=== PATIENT | male | born 1970 | race Two or more races ===

== ENCOUNTER 2021-10-24 22:28 | Inpatient (IN) | payer OTHER ==
[~2021-10-24] VITALS: Ht 175.3 cm; Wt 86.4 kg
[~2021-10-24 22:28] MED LIST: aspirin 81mg tab.chew ONE; enoxaparin 100mg/ml syringe ONE; heparin 10,000 units/1 ML INJ ONE; heparin, porcine-25,000 units/D5-250ml premix IV ONE
[2021-10-24] MEDS ORDERED: heparin 10,000 units/1 ML INJ IV ONE ×2 (22:45→22:50)
[2021-10-24] MEDS ORDERED: aspirin 325mg tablet PO ONE (22:45)
[2021-10-24] MEDS ORDERED: heparin 10,000 units/1 ML INJ IV PRN (22:45)
[2021-10-24] MEDS ORDERED: heparin 25,000 UNIT/250ml bag 250 ML IV SCH (22:45)
[2021-10-24] MEDS ORDERED: morphine 4 MG/ML inj SYRINge IV ONE (22:55)
[2021-10-24] MEDS ORDERED: ELVI1TAB3 PO (23:00)
[2021-10-24] MEDS ORDERED: ondansetron/PF 4mg/2ml inj IV ONE (23:00)
[2021-10-24 23:02] LABS: EOSINOPHILS # (AUTO) 0.1 X10'3 (0-0.9); MEAN CORPUSCULAR HEMOGLOBIN 25.2 PG (27.0-31.0)
[2021-10-24 23:04] LABS: BASOPHILS # (AUTO) 0.1 X10'3 (0-0.2); BASOPHILS % (AUTO) 1.1 % (0-1); EOSINOPHILS % (AUTO) 1.6 % (0-6); HEMATOCRIT 44.2 % (42.0-52.0); HEMOGLOBIN 14.4 g/dl (14.0-17.9); LYMPHOCYTES # (AUTO) 0.9 X10'3 (1.1-4.8); LYMPHOCYTES % (AUTO) 13.7 % (21-51); MEAN CORPUSCULAR HGB CONC 32.6 g/dL (33.0-36.5); MEAN CORPUSCULAR VOLUME 77.2 FL (78-98); MEAN PLATELET VOLUME 7.4 FL (7.4-10.4); MONOCYTES # (AUTO) 0.8 X10'3 (0-0.9); MONOCYTES % (AUTO) 12.6 % (2-12); NEUTROPHILS # (AUTO) 4.6 X10'3 (1.8-7.7); PLATELET COUNT 312 X10'3 (140-440); RED BLOOD COUNT 5.73 X10'6 (4.70-6.10); RED CELL DISTRIBUTION WIDTH 13.9 % (11.5-14.5); WHITE BLOOD COUNT 6.5 X10'3 (4.5-11.0)
[2021-10-24] MEDS ORDERED: nitroGLYCERIN 1gm ointment UD TP ONE (23:05)
[2021-10-24 23:12] LABS: APTT 27 SECONDS (22-32)
[2021-10-24] MEDS ORDERED: LIDOcaine 1% (10mg/ml)w/preservative injection 20ml MDV ONE (23:12)
[2021-10-24] MEDS ORDERED: fentaNYL/PF 50MCG/1 ML 2ML syringe ONE (23:12)
[2021-10-24] MEDS ORDERED: midazolam 1 mg/ML 2ml injection ONE (23:12)
[2021-10-24] MEDS ORDERED: iohexol 350MG/ML 100ml bottle IV ONE ×2 (23:12→23:51)
[2021-10-24] MEDS ORDERED: iohexol 350 MG/ML 50ML vial IV ONE (23:12)
[2021-10-24 23:20] LABS: ALANINE AMINOTRANSFERASE 36 U/L (12-78); ALBUMIN 3.7 G/DL (3.4-5.0); ALBUMIN/GLOBULIN RATIO 0.9 (1.1-1.5); ALKALINE PHOSPHATASE 82 IU/L (46-116); ANION GAP 7 (8-16); ASPARTATE AMINO TRANSFERASE 26 U/L (10-37); BILIRUBIN,TOTAL 0.3 MG/DL (0.1-1.0); BLOOD UREA NITROGEN 23 MG/DL (7-18); BUN/CREATININE RATIO 18.3 (5.4-32.0); CALCIUM 8.5 MG/DL (8.5-10.1); CHLORIDE 103 MMOL/L (99-107); CREATININE 1.26 MG/DL (0.60-1.10); GLUCOSE 184 MG/DL (70-104); POTASSIUM 3.7 MMOL/L (3.5-5.1); SODIUM 140 MMOL/L (135-145); TOTAL CARBON DIOXIDE 29.7 MMOL/L (24-32); TOTAL PROTEIN 7.8 G/DL (6.4-8.2); eGFR 60 ML/MIN
[2021-10-24] MEDS ORDERED: diphenhydrAMINE 50 mg/ml inj ONE (23:34)
[2021-10-24 23:38] LABS: MAGNESIUM 2.1 MG/DL (1.5-2.4)
[2021-10-24] MEDS ORDERED: tirofiban 5mg in NS 100mL 100 ML IV ONE (23:43)
[2021-10-24] MEDS ORDERED: heparin 1,000unit/ml 10ml vial 10 ML ONE (23:52)
[2021-10-24] MEDS ORDERED: nitroGLYCERIN-Tridil 50MG/D5W 250 ML IV ONE (23:56)
[2021-10-25] VITALS (30 sets, daily range): BP systolic 92–127; BP diastolic 55–88
[2021-10-25] MEDS ORDERED: clopidogrel 300mg tablet ONE (00:14)
[2021-10-25] MEDS ORDERED: tirofiban 5mg in NS 100mL 100 ML IV ONE (00:30)
--- NOTE | 2021-10-25 01:00 | NUR ---
Patient in room ICU 2045. I have received report from Magaly MACIAS from greenhouse laborer and had the opportunity to ask questions and assume patient care.
[2021-10-25] MEDS ORDERED: magnesium hydroxide 30ml (MOM) UD suspension PO PRN (01:15)
[2021-10-25] MEDS ORDERED: nitroGLYCERIN 0.4mg SUBLingual tab SL PRN (01:15)
[2021-10-25] MEDS ORDERED: acetaminophen 325mg tablet PO PRN ×2 (01:15)
[2021-10-25] MEDS ORDERED: HYDROcodone/acetaminophen 10/325mg tab PO PRN ×2 (01:15)
[2021-10-25] MEDS ORDERED: morphine 10mg/ml inj. IV PRN (01:15)
[2021-10-25] MEDS ORDERED: OXAZEpam 15mg capsule PO PRN (01:15)
[2021-10-25] MEDS ORDERED: proCHLORperazine 10 MG/2 ml inj IV PRN (01:15)
[2021-10-25] MEDS ORDERED: morphine 4 MG/ML inj SYRINge IV PRN (01:15)
[2021-10-25] MEDS ORDERED: nitroGLYCERIN-Tridil 50MG/D5W 250 ML IV PRN (01:15)
[2021-10-25] MEDS ORDERED: cyclobenzaprine 10mg tablet PO PRN (01:15)
[2021-10-25] MEDS ORDERED: normal saline 1000ml 1,000 ML IV SCH (01:20)
[2021-10-25 03:05] LABS: BASOPHILS # (AUTO) 0.1 X10'3 (0-0.2); BASOPHILS % (AUTO) 1.1 % (0-1); EOSINOPHILS # (AUTO) 0.1 X10'3 (0-0.9); EOSINOPHILS % (AUTO) 1.6 % (0-6); HEMATOCRIT 39.9 % (42.0-52.0); HEMOGLOBIN 12.8 g/dl (14.0-17.9); LYMPHOCYTES # (AUTO) 0.9 X10'3 (1.1-4.8); LYMPHOCYTES % (AUTO) 16.5 % (21-51); MEAN CORPUSCULAR HEMOGLOBIN 24.9 PG (27.0-31.0); MEAN CORPUSCULAR HGB CONC 32.2 g/dL (33.0-36.5); MEAN CORPUSCULAR VOLUME 77.5 FL (78-98); MEAN PLATELET VOLUME 7.5 FL (7.4-10.4); MONOCYTES # (AUTO) 0.6 X10'3 (0-0.9); MONOCYTES % (AUTO) 11.8 % (2-12); NEUTROPHILS # (AUTO) 3.7 X10'3 (1.8-7.7); PLATELET COUNT 299 X10'3 (140-440); RED BLOOD COUNT 5.14 X10'6 (4.70-6.10); RED CELL DISTRIBUTION WIDTH 14.3 % (11.5-14.5); WHITE BLOOD COUNT 5.3 X10'3 (4.5-11.0)
[2021-10-25 03:20] LABS: ALANINE AMINOTRANSFERASE 31 U/L (12-78); ALBUMIN 2.9 G/DL (3.4-5.0); ALBUMIN/GLOBULIN RATIO 0.8 (1.1-1.5); ALKALINE PHOSPHATASE 66 IU/L (46-116); ANION GAP 7 (8-16); ASPARTATE AMINO TRANSFERASE 49 U/L (10-37); BILIRUBIN,TOTAL 0.2 MG/DL (0.1-1.0); BLOOD UREA NITROGEN 18 MG/DL (7-18); CALCIUM 7.5 MG/DL (8.5-10.1); CHLORIDE 107 MMOL/L (99-107); CHOLESTEROL 155 MG/DL (0-200); GLUCOSE 107 MG/DL (70-104); HDL CHOLESTEROL 31 MG/DL (35-60); LDL CHOLESTEROL 112 MG/DL (50-100); POTASSIUM 3.9 MMOL/L (3.5-5.1); SODIUM 140 MMOL/L (135-145); TOTAL CARBON DIOXIDE 26.5 MMOL/L (24-32); TOTAL PROTEIN 6.5 G/DL (6.4-8.2); TRIGLYCERIDES 29 MG/DL (20-135); eGFR 89 ML/MIN
[2021-10-25] MEDS: aspirin 81mg tab.chew PO SCH (08:00)
[2021-10-25] MEDS: clopidogrel 75mg tablet PO SCH (08:00)
[2021-10-25] MEDS: docusate sod 100mg capsule PO SCH ×2 (08:00→19:49)
[2021-10-25] MEDS: atorvastatin 20mg tablet PO SCH (08:00)
[2021-10-25] MEDS ORDERED: LIDOcaine 1% (10mg/ml)w/preservative injection 20ml MDV ONE (08:50)
--- NOTE | 2021-10-25 21:30 | NUR ---
Patient in room MED 307. I have received report from Jeana MACIAS and had the opportunity to ask questions and assume patient care.
--- NOTE | 2021-10-25 21:40 | NUR ---
Mr. Daily has been transferred to room 307-B. He has been assessed as indicated. He has been noted to be both pleasant and cooperative. He denies pain and has been assited to bed without complications. He is NSR on the heart monitor and is resting quietly. He will continue to be monitored
--- NOTE | 2021-10-25 21:48 | NUR ---
Patient transferred to room 207 via wheelchair. Alert and oriented X4. No complaints of pain or discomfort noted. Portable tele on for transfer/ Belongings given. Addendum: 10/26/21 at 0551 by Michelle Mcintyre RN Patient transferred to room 307 via wheelchair. Alert and oriented X4. No complaints of pain or discomfort noted. Portable tele on for transfer/ Belongings given.
[2021-10-26 02:00] VITALS: BP 105/65
[2021-10-26 06:00] VITALS: BP 109/76
--- NOTE | 2021-10-26 06:22 | NUR ---
Problems reprioritized. Patient report given, questions answered & plan of care reviewed with Diana Morales
[2021-10-26 06:27] LABS: BASOPHILS # (AUTO) 0.1 X10'3 (0-0.2); BASOPHILS % (AUTO) 1.1 % (0-1); EOSINOPHILS # (AUTO) 0.1 X10'3 (0-0.9); EOSINOPHILS % (AUTO) 1.3 % (0-6); HEMATOCRIT 37.8 % (42.0-52.0); LYMPHOCYTES # (AUTO) 1.1 X10'3 (1.1-4.8); MEAN CORPUSCULAR HEMOGLOBIN 24.9 PG (27.0-31.0); MEAN CORPUSCULAR HGB CONC 31.7 g/dL (33.0-36.5); MEAN CORPUSCULAR VOLUME 78.6 FL (78-98); MEAN PLATELET VOLUME 7.6 FL (7.4-10.4); MONOCYTES # (AUTO) 1.1 X10'3 (0-0.9); MONOCYTES % (AUTO) 18.4 % (2-12); NEUTROPHILS # (AUTO) 3.8 X10'3 (1.8-7.7); NEUTROPHILS % (AUTO) 62.2 % (42-75); PLATELET COUNT 265 X10'3 (140-440); RED BLOOD COUNT 4.81 X10'6 (4.70-6.10); RED CELL DISTRIBUTION WIDTH 14.1 % (11.5-14.5); WHITE BLOOD COUNT 6.2 X10'3 (4.5-11.0)
--- NOTE | 2021-10-26 06:40 | NUR ---
Patient in room MED 307. I have received report from COLLEEN FITZPATRICK, and had the opportunity to ask questions and assume patient care.
[2021-10-26] MEDS: atorvastatin 20mg tablet PO SCH (08:08)
[2021-10-26] MEDS: clopidogrel 75mg tablet PO SCH (08:08)
[2021-10-26] MEDS: aspirin 81mg tab.chew PO SCH (08:08)
[2021-10-26] MEDS: docusate sod 100mg capsule PO SCH (08:08)
[2021-10-26 11:00] VITALS: BP 104/68
--- NOTE | 2021-10-26 13:35 | NUR ---
Patient in room PCU 3012. I have received report from ALEXANDER MACIAS and had the opportunity to ask questions and assume patient care.
--- NOTE | 2021-10-26 14:09 | NUR ---
Problems reprioritized. Patient report given, questions answered & plan of care reviewed with COLLEEN VÁZQUEZ.
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
== END 2021-10-26 14:00 | disposition left against medical advice (07) | DRG 247 ==
LOC: ER 22:28 → ICU 2S 10-25 00:25 → MED 3N 10-25 23:21 → PCU 3S 10-26 10:12
PROVIDERS: ADMIT Internal Medicine; ATTEND Internal Medicine
PROC: 4A023N7 Measurement of Cardiac Sampling and Pressure, Left Heart, Percutaneous Approach (ICD-10-PCS; principal; 2021-10-24)
PROC: 027034Z Dilation of Coronary Artery, One Artery with Drug-eluting Intraluminal Device, Percutaneous Approach (ICD-10-PCS; 2021-10-24)
PROC: B2111ZZ Fluoroscopy of Multiple Coronary Arteries using Low Osmolar Contrast (ICD-10-PCS; 2021-10-24)
PROC: B2151ZZ Fluoroscopy of Left Heart using Low Osmolar Contrast (ICD-10-PCS; 2021-10-24)
DX: I21.19 ST elevation (STEMI) myocardial infarction involving other coronary artery of inferior wall (principal); F17.210 Nicotine dependence, cigarettes, uncomplicated; Z20.822 Contact with and (suspected) exposure to COVID-19; Z53.29 Procedure and treatment not carried out because of patient's decision for other reasons; I45.10 Unspecified right bundle-branch block; Z21 Asymptomatic human immunodeficiency virus [HIV] infection status; I45.9 Conduction disorder, unspecified; R00.1 Bradycardia, unspecified; Z88.1 Allergy status to other antibiotic agents; Z79.899 Other long term (current) drug therapy
CPT/HCPCS: 36415; 71045; 80053; 80061; 83735; 83880; 84484; 85025; 85610; 85730; 87081; 87635; 93005; 99285; A5120; A6258; A6449; C1760; C9803; G0378; J1200; J1644; J1650; J2250; J2270; J2405; J3010; J3246; J3490; J7030; Q9967

== ENCOUNTER 2021-10-27 04:37 | Observation (INO) | payer OTHER ==
[~2021-10-27] VITALS: Ht 175.3 cm; Wt 90.9 kg
[~2021-10-27 04:37] MED LIST changes: +ELVI1TAB3 PO; -aspirin 81mg tab.chew ONE; -enoxaparin 100mg/ml syringe ONE; -heparin 10,000 units/1 ML INJ ONE; -heparin, porcine-25,000 units/D5-250ml premix IV ONE
[2021-10-27 05:48] LABS: BASOPHILS # (AUTO) 0.1 X10'3 (0-0.2); EOSINOPHILS # (AUTO) 0.1 X10'3 (0-0.9); EOSINOPHILS % (AUTO) 1.1 % (0-6); HEMATOCRIT 34.2 % (42.0-52.0); LYMPHOCYTES # (AUTO) 0.8 X10'3 (1.1-4.8); MEAN CORPUSCULAR HGB CONC 32.3 g/dL (33.0-36.5); MEAN CORPUSCULAR VOLUME 77.4 FL (78-98); MEAN PLATELET VOLUME 7.6 FL (7.4-10.4); MONOCYTES % (AUTO) 17.7 % (2-12); NEUTROPHILS # (AUTO) 3.8 X10'3 (1.8-7.7); NEUTROPHILS % (AUTO) 66.2 % (42-75); PLATELET COUNT 269 X10'3 (140-440); RED BLOOD COUNT 4.42 X10'6 (4.70-6.10); RED CELL DISTRIBUTION WIDTH 13.7 % (11.5-14.5); WHITE BLOOD COUNT 5.7 X10'3 (4.5-11.0)
[2021-10-27 05:57] LABS: ALANINE AMINOTRANSFERASE 36 U/L (12-78); ALBUMIN 3.2 G/DL (3.4-5.0); ALBUMIN/GLOBULIN RATIO 0.8 (1.1-1.5); ALKALINE PHOSPHATASE 72 IU/L (46-116); ANION GAP 7 (8-16); ASPARTATE AMINO TRANSFERASE 45 U/L (10-37); BILIRUBIN,TOTAL 0.3 MG/DL (0.1-1.0); BLOOD UREA NITROGEN 22 MG/DL (7-18); BUN/CREATININE RATIO 18.5 (5.4-32.0); CALCIUM 8.4 MG/DL (8.5-10.1); CHLORIDE 103 MMOL/L (99-107); CREATININE 1.19 MG/DL (0.60-1.10); GLUCOSE 119 MG/DL (70-104); POTASSIUM 3.5 MMOL/L (3.5-5.1); SODIUM 138 MMOL/L (135-145); TOTAL CARBON DIOXIDE 28.2 MMOL/L (24-32); eGFR 64 ML/MIN
[2021-10-27] MEDS ORDERED: aspirin 325mg tablet PO ONE (06:05)
[2021-10-27] MEDS ORDERED: atorvastatin 20mg tablet PO STA (06:08)
[2021-10-27] MEDS ORDERED: heparin 10,000 units/1 ML INJ IV ONE ×2 (06:20→06:30)
--- NOTE | 2021-10-27 07:29 | NUR ---
drawn ptt at this time and start heparin drip bafter the result as per dr reaves orders.
[2021-10-27 07:53] LABS: APTT 24 SECONDS (22-32)
[2021-10-27] MEDS: heparin 25,000 UNIT/250ml bag 250 ML IV SCH (08:41)
--- NOTE | 2021-10-27 12:30 | NUR ---
asked natividad birch what is the plan for this pt as there is no admin orders ,pt is on heparin infusion for positive 0 hr trop ,as per he will page hospitalist .
[2021-10-27] MEDS ORDERED: magnesium 4gm in 100ml NS 100 ML IV PRN (14:05)
[2021-10-27] MEDS ORDERED: potassium CL 10mEq/100ml bag 100 ML IV PRN (14:05)
[2021-10-27] MEDS ORDERED: morphine 2 MG/ML inj. syringe IV PRN (14:05)
[2021-10-27] MEDS ORDERED: magnesium 2GM in 50ml NS 50 ML IV PRN (14:05)
[2021-10-27] MEDS ORDERED: ondansetron 4mg rapidly disintigrating tab PO PRN (14:05)
[2021-10-27] MEDS ORDERED: acetaminophen 325mg tablet PO PRN (14:05)
[2021-10-27] MEDS ORDERED: magnesium Cl slow-release 64mg tablet PO PRN (14:05)
[2021-10-27] MEDS ORDERED: ondansetron/PF 4mg/2ml inj IV PRN (14:05)
[2021-10-27] MEDS ORDERED: potassium Cl 20 mEq SR tablet PO PRN ×2 (14:05)
[2021-10-27] MEDS ORDERED: clopidogrel 300mg tablet PO ONE (16:30)
[2021-10-27] MEDS: heparin 10,000 units/1 ML INJ IV PRN (19:20)
[2021-10-27] MEDS: K and/or MAG REPLACEMENT MC SCH (20:00)
[2021-10-27 22:00] VITALS: BP 145/84
[2021-10-28 00:01] VITALS: BP 137/84
[2021-10-28 02:00] VITALS: BP 114/76
[2021-10-28] MEDS: heparin 10,000 units/1 ML INJ IV PRN (03:05)
[2021-10-28] MEDS: heparin 25,000 UNIT/250ml bag 250 ML IV SCH (03:11)
[2021-10-28 06:00] VITALS: BP 97/55
[2021-10-28 07:55] LABS: BASOPHILS # (AUTO) 0.1 X10'3 (0-0.2); BASOPHILS % (AUTO) 1.3 % (0-1); EOSINOPHILS # (AUTO) 0.2 X10'3 (0-0.9); HEMATOCRIT 35.1 % (42.0-52.0); HEMOGLOBIN 11.3 g/dl (14.0-17.9); LYMPHOCYTES # (AUTO) 0.9 X10'3 (1.1-4.8); LYMPHOCYTES % (AUTO) 18.3 % (21-51); MEAN CORPUSCULAR HGB CONC 32.2 g/dL (33.0-36.5); MEAN CORPUSCULAR VOLUME 77.4 FL (78-98); MEAN PLATELET VOLUME 7.5 FL (7.4-10.4); NEUTROPHILS # (AUTO) 2.7 X10'3 (1.8-7.7); NEUTROPHILS % (AUTO) 55.4 % (42-75); PLATELET COUNT 285 X10'3 (140-440); RED BLOOD COUNT 4.53 X10'6 (4.70-6.10); RED CELL DISTRIBUTION WIDTH 13.8 % (11.5-14.5); WHITE BLOOD COUNT 4.8 X10'3 (4.5-11.0)
[2021-10-28] MEDS: K and/or MAG REPLACEMENT MC SCH (08:00)
[2021-10-28] MEDS ORDERED: [UNRECOGNIZED DRUG - OTHER] PO SCH (08:00)
[2021-10-28 08:16] LABS: ALBUMIN 2.9 G/DL (3.4-5.0); ANION GAP 7 (8-16); BLOOD UREA NITROGEN 17 MG/DL (7-18); BUN/CREATININE RATIO 17.9 (5.4-32.0); CALCIUM 8.1 MG/DL (8.5-10.1); CHLORIDE 106 MMOL/L (99-107); CREATININE 0.95 MG/DL (0.60-1.10); GLUCOSE 89 MG/DL (70-104); MAGNESIUM 1.9 MG/DL (1.5-2.4); POTASSIUM 4.2 MMOL/L (3.5-5.1); SODIUM 139 MMOL/L (135-145); TOTAL CARBON DIOXIDE 26.4 MMOL/L (24-32); eGFR 83 ML/MIN
[2021-10-28 09:09] LABS: EOSINOPHILS % (MANUAL) 1.5 % (0-6); LARGE PLATELETS FEW; LYMPHOCYTES % (MANUAL) 13.5 % (21-51); PLATELET ESTIMATE NORMAL; TOTAL CELLS COUNTED 200
[2021-10-28] MEDS ORDERED: CLOP75TA15 PO (09:57)
--- NOTE | 2021-10-28 10:30 | NUR ---
PAGER ID: [phone] MESSAGE: [email or web address], CAN WE DISCHARGE [id number], MR. STOCKTON?
--- NOTE | 2021-10-28 11:02 | NUR ---
PAGER ID: [phone] MESSAGE: TOBIAS ON [email or web address], CAN YOU CALL ME REGARDING Leilani AND HIS PLAVIX. THX Addendum: 10/28/21 at 1158 by Le Mcintyre RN Awaiting for lab results pending discharge, Tobias MACIAS assumed care
[2021-10-28] MEDS ORDERED: clopidogrel 300mg tablet PO ONE (11:45)
--- NOTE | 2021-10-28 11:57 | NUR ---
Patient in room PCU 3013. I have received report from ANNETTA MACIAS and had the opportunity to ask questions and assume patient care.
== END 2021-10-28 14:57 | disposition home or self-care (01) ==
LOC: ER 04:38 → ED HOLD 14:06 → EDBEDREQ 18:18 → PCU 3S 19:37
PROVIDERS: ADMIT Internal Medicine; ATTEND Internal Medicine
DX: R79.89 Other specified abnormal findings of blood chemistry (principal); R06.02 Shortness of breath; Z21 Asymptomatic human immunodeficiency virus [HIV] infection status; R07.89 Other chest pain; I25.10 Atherosclerotic heart disease of native coronary artery without angina pectoris; F17.210 Nicotine dependence, cigarettes, uncomplicated; Z88.1 Allergy status to other antibiotic agents; Z79.899 Other long term (current) drug therapy; Z79.02 Long term (current) use of antithrombotics/antiplatelets
CPT/HCPCS: 36415; 71045; 80048; 80053; 83735; 83880; 84132; 84484; 85007; 85025; 85610; 85730; 87081; 93005; 96365; 96366; 96376; 99285; G0378; J1644

== ENCOUNTER 2025-09-10 12:16 | Emergency (ER) | payer MEDICAID ==
[~2025-09-10] VITALS: Ht 175.3 cm; Wt 80.2 kg
[~2025-09-10 12:16] MED LIST changes: +CLOP75TA15 PO
[2025-09-10 12:46] LABS: LEUKOCYTE ESTERASE ,URINE NEGATIVE (Neg); NITRITES, URINE NEGATIVE (Neg); OCCULT BLOOD,URINE NEGATIVE (Neg); UA COLLECTION TYPE CLN CATCH MIDSTREAM
[2025-09-10 12:49] LABS: MEAN PLATELET VOLUME 6.9 FL (7.4-10.4); RED CELL DISTRIBUTION WIDTH 15.2 % (11.5-14.5)
[2025-09-10 12:59] LABS: CREATININE 1.01 MG/DL (0.60-1.10); TOTAL CARBON DIOXIDE 32.4 MMOL/L (24-32); eCRCL 82 ML/MIN; eGFR 76 ML/MIN
--- NOTE | 2025-09-10 13:44 | Physician Documentation ---
History of Present Illness Chief Complaint: Abdominal Pain Stated Complaint: ABD PAIN Time Seen by MD: 12:31 Source: patient Mode of Arrival: POV Exam Limitations: no limitations HPI 55 y/o male with c/o abdominal pain gradual onset over past several days. Patient states he was told if he experiences abdominal pain to come to the emergency room because he has a known right-sided inguinal hernia which is pending repair from Dr. Ferrer. He denies any pain in his groin area where his hernias at but he was not sure if the pain in his abdomen could be related to the hernia. Last bowel movement 7days ago. He has not taken for constipation. Nausea, vomiting. He is not on opioids. Medication Reconciliation Allergies: Coded Allergies: amoxicillin (Verified Allergy, Unknown, 09/10/25) Scheduled Clopidogrel Bisulfate (Plavix), 1 TAB PO DAILY Elviteg/Cady/Emtric/Tenofo Ala (Genvoya Tablet), 1 TAB PO DAILY, (Reported) Past Medical History Past Medical History: No Pertinent History, Coronary Artery Disease, HIV Lives In: Home Review of Systems All Other Systems at this time: Reviewed and Negative Physical Exam Vital Signs: Temperature: 98.1, Source: Temporal, Heart Rate: 82, Respiratory Rate: 16, BP: 175/104, Pulse Oximetry: 100, Weight: 80.200 Oxygen Flow Rate: 0 Physical Exam GENERAL: Alert, no acute distress. HEENT: NCAT, EOMI, PERRL, normal oropharynx, moist oral mucosa. NECK: Supple, trachea midline. CARDIAC: Regular rate and rhythm, no murmurs, rubs, or gallops. Equal distal pulses. No lower extremity edema, cap refill less than 2 seconds. RESPIRATORY: Equal breath sounds, clear to auscultation bilaterally, no respiratory distress. ABD: SOFT, ND, VERY MILD TTP, NO MASSES, IN AREA WHERE KNOWN R. INGUINAL HERNIA IS THERE IS NO TTP WITH PALPATION. MUSCULOSKELETAL: Normal gait. NEUROLOGICAL: Awake, alert, and oriented x 3. SKIN: Warm/dry, no pallor, no rash. PSYCH: Alert and appropriate. Affect congruent with mood. Speech is clear. Good eye contact. Progress Results/Orders Results/Orders Vital Signs 09/10/25 09/10/25 12:20 12:58 Temp 98.1 Pulse 82 Resp 18 16 B/P (MAP) 175/104 Pulse Ox 100 O2 Flow Rate 0 Laboratory Tests Test 09/10/25 12:31 White Blood Count 5.3 Red Blood Count 6.01 Hemoglobin 15.1 Hematocrit 45.9 Mean Corpuscular Volume 76.3 L Mean Corpuscular Hemoglobin 25.1 L Mean Corpuscular Hemoglobin Concent 32.9 L Red Cell Distribution Width 15.2 H Platelet Count 315 Mean Platelet Volume 6.9 L Neutrophils (%) (Auto) 58.6 Lymphocytes (%) (Auto) 20.8 L Monocytes (%) (Auto) 14.3 H Eosinophils (%) (Auto) 4.4 Basophils (%) (Auto) 1.9 H Neutrophils # (Auto) 3.1 Lymphocytes # (Auto) 1.1 Monocytes # (Auto) 0.8 Eosinophils # (Auto) 0.2 Basophils # (Auto) 0.1 CBC Comment Urine Specimen Description Cln catch midstream Urine Color Yellow Urine Clarity Clear Urine pH 6.5 Urine Specific Beebe 1.015 Urine Protein Negative Urine Glucose (UA) Negative Urine Ketones Negative Urine Occult Blood Negative Urine Nitrite Negative Urine Bilirubin Negative Urine Urobilinogen 0.2 Urine Leukocyte Esterase Negative Urine Culture Indicated Not ind Volume Urine Centrifuged 10 ml Urine Comment Sodium Level 135 Potassium Level 4.6 Chloride Level 98 L Carbon Dioxide Level 32.4 H Anion Gap 5 L Blood Urea Nitrogen 21 H Creatinine 1.01 Estimated GFR/1.73 m2 76 BUN/Creatinine Ratio 20.8 H Glucose Level 105 H Calcium Level 8.8 Total Bilirubin 0.4 Aspartate Amino Transf (AST/SGOT) 15 Alanine Aminotransferase (ALT/SGPT) 19 Alkaline Phosphatase 87 Total Protein 8.6 H Albumin 4.0 Globulin 4.6 H Albumin/Globulin Ratio 0.9 L Lipase 34 Chemistry Comments Medical Decision Making Additional information obtaine: N/A Findings n/a Differential Dx:Considerations: AAA, Angina/VA, Aortic dissection, Appendicitis, Bowel obstruction, Cholangitis, Cholelithasis, Constipation, Diverticular disease, Esophageal rupture, Esophagitis, Gastritis/PUD, Gastroenteritis, GI hemorrhage, Hernia, Hepatitis, Inflammatory BD, Ischemic bowel, Pancreatitis, Porphyria, Testicular torsion, Trauma, intraabdominal, Urinary obstruction, Urinary tract infection, Urolithiasis, Other Departure Time of Disposition: 18:43 Disposition: 01 HOME / SELF CARE / HOMELESS Impression: Primary Impression: Abdominal pain Qualified Codes: R10.84 - Generalized abdominal pain Condition: Stable Discharge Instructions: Abdominal Pain (Nonspecific) Additional Instructions: labs normal pain is not in area where hernia is I suspect pain is related to constipation, recommend taking mag citrate or milk of mag If vomiting or worsening of pain return to ER Referrals: NO PRIMARY CARE PROVIDER (PCP) Education Educated: Patient Educated regarding: diagnosis, treatment, need for follow up Signature Scribe Signature: x Attestation: ZUNILDA Jones Sep 10, 2025 13:44
[2025-09-10 13:49] VITALS: BP 148/95; PULSE 88; RESP 16; TEMP 98.1; O2SAT 96
== END 2025-09-10 13:51 | disposition home or self-care (01) ==
LOC: ER 12:17
DX: K40.90 Unilateral inguinal hernia, without obstruction or gangrene, not specified as recurrent (principal); Z88.1 Allergy status to other antibiotic agents; Z79.899 Other long term (current) drug therapy
CPT/HCPCS: 36415; 80053; 81003; 83690; 85025; 99283

== ENCOUNTER 2025-09-13 21:27 | Emergency (ER) | payer MEDICAID ==
[2025-09-13 21:53] VITALS: BP 170/100; PULSE 84; RESP 15; TEMP 96.3; O2SAT 98
[2025-09-14] MEDS ORDERED: PROM12.512 PO (14:34)
== END 2025-09-13 23:05 | disposition left against medical advice (07) ==
LOC: ER 21:27
DX: R10.32 Left lower quadrant pain (principal); Z88.1 Allergy status to other antibiotic agents; Z53.21 Procedure and treatment not carried out due to patient leaving prior to being seen by health care provider
CPT/HCPCS: 99281

== ENCOUNTER 2025-09-14 14:17 | Emergency (ER) | payer MEDICAID ==
--- NOTE | 2025-09-14 14:26 | Physician Documentation ---
History of Present Illness Stated Complaint: L LEG NUMBNESS HPI This 55-year-old male who presents ambulatory due to concerns for left leg numbness. No neurologic deficits. Stroke scale negative parents notes that he is waiting for a left inguinal hernia repair under the care of Dr. Ferrer. This is not yet been scheduled. He was seen within the last two week for constipation and nausea. He reports the constipation has been alleviated, but the nausea persists. Medication Reconciliation Allergies: Coded Allergies: amoxicillin (Verified Allergy, Unknown, 09/13/25) Scheduled Clopidogrel Bisulfate (Plavix), 1 TAB PO DAILY Elviteg/Cady/Emtric/Tenofo Ala (Genvoya Tablet), 1 TAB PO DAILY, (Reported) Past Medical History Past Medical History: No Pertinent History, Coronary Artery Disease, HIV Lives In: Home Review of Systems ROS As stated above in the HPI, otherwise all systems are reviewed and negative. Physical Exam Physical Exam General: Alert, no apparent distress. HEENT: PERRL, EOMI, no injection, moist mucous membranes. Neck: Full range of motion. Respiratory: Lungs clear, no respiratory distress. Chest: No accessory muscle use. Cardiovascular: Regular rate and rhythm, no murmurs. Gastrointestinal: Soft, nontender, nondistended. Bowels sounds present. Extremities: Normal range of motion, no deformity. Neurologic: Oriented x4. Psychiatric: Normal mood and affect. Skin: Normal color, warm and dry. No edema, no ecchymosis. Medical Decision Making Additional information obtaine: old records Findings Was in this ER requesting to be seen within last 24 hours but LWOBS. Differential Dx:Considerations: AAA, Angina/[place], Aortic dissection, Appendicitis, Bowel obstruction, Cholangitis, Cholelithasis, Constipation, Diverticular disease, Esophageal rupture, Esophagitis, Gastritis/PUD, Gastroenteritis, GI hemorrhage, Hernia, Hepatitis, Inflammatory BD, Ischemic bow el, Pancreatitis, Porphyria, Testicular torsion, Trauma, intraabdominal, Urinary obstruction, Urinary tract infection, Urolithiasis, Other Additional Comments Normal neuro exam with no focal deficits. No hard discolored lump at site of hernia. No danger signs on exam. Appropriate to keep general surgeon f/u appt and return if worse. Departure Time of Disposition: 14:32 Disposition: 01 HOME / SELF CARE / HOMELESS Impression: Primary Impression: Nausea Additional Impression: Inguinal hernia of left side without obstruction or gangrene Condition: Stable Discharge Instructions: Inguinal Hernia, Adult, Nausea, Adult Additional Instructions: Follow up with your surgeon, Dr. Coleman. Please return if worse, such as with numbness of one side versus the other, facial droop, severe pain, hard discolored lump at site of hernia, fever, or any other concerns that you are markedly worse. Referrals: NO PRIMARY CARE PROVIDER (PCP) Prescriptions Promethazine Hcl (Phenergan) 12.5 Mg Tablet 1 TAB PO Q6H for nausea for 7 Days, #28 TAB 0 Refills Prov: SHAZIA CHRISTIAN NP 09/14/25 Education Educated: Patient Educated regarding: diagnosis, treatment, prognosis, need for follow up Signature Scribe Signature: x Attestation: The note accurately reflects work and decisions made by me.Shazia Bernard NP 09/14/25 14:31 SHAZIA CHRISTIAN NP Sep 14, 2025 14:26
[2025-09-14 14:27] VITALS: BP 155/104; PULSE 93; RESP 15; TEMP 96.3; O2SAT 96
[2025-09-14] MEDS ORDERED: PROM12.512 PO (14:34)
== END 2025-09-14 14:42 | disposition home or self-care (01) ==
LOC: ER 14:17
DX: K40.90 Unilateral inguinal hernia, without obstruction or gangrene, not specified as recurrent (principal); R11.0 Nausea; Z88.0 Allergy status to penicillin
CPT/HCPCS: 99283

== ENCOUNTER 2025-09-15 22:00 | Inpatient (IN) | payer MEDICAID ==
[~2025-09-15] VITALS: Ht 175.3 cm; Wt 77.3 kg
[~2025-09-15 22:00] MED LIST changes: +PROM12.512 PO
--- NOTE | 2025-09-16 00:55 | ELECTROCARDIOGRAPH REPORT ---
[facility] Test Date: 2025-09-16 Test Time: 00:53:40 Pat Name: MARY STOCKTON Department: [facility] Patient ID: [id number] Room: [place] [address] Gender: M Rivet Spinner: : 1970 Requested By: DUARTE REYES Order Number: [id number] Reading MD: Dr. CAROLINA Sood Measurements Intervals [place] Rate: 90 P: 60 VT: 127 QRS: 87 QRSD: 103 T: 34 QT: 370 QTc: 453 Interpretive Statements Sinus rhythm RSR' in V1 or V2, right VCD or RVH Electronically Signed On 09-17-2025 13:08:[address] CAROLINA Sood Please click the below link to view image of tracing.
[2025-09-16 01:21] LABS: MEAN PLATELET VOLUME 6.8 FL (7.4-10.4); RED CELL DISTRIBUTION WIDTH 14.4 % (11.5-14.5)
[2025-09-16 01:37] LABS: APTT 25 SECONDS (22-32); INR 1.0 INR
[2025-09-16 01:42] LABS: CREATININE 1.03 MG/DL (0.60-1.10); TOTAL CARBON DIOXIDE 29.9 MMOL/L (24-32); eCRCL 80 ML/MIN; eGFR 75 ML/MIN
[2025-09-16] MEDS ORDERED: iohexol 300mg/ml 100ml inj. ONE (02:15)
--- NOTE | 2025-09-16 03:13 | RADIOLOGY REPORT ---
EXAM: CT CT HEAD INDICATION: progressive LE weakness x2 weeks, mass TECHNIQUE: CT of the head without intravenous contrast. Radiation Dose : 1. Head: CT Dose: CTDI volume is 51.4 mGy. Dose-length product is 995.89 mGy*cm The dose indicators for CT are the volume Computed Tomography (CT) Dose Index (CTDIvol) and the Dose Length Product (DLP), and are measured in units of mGy and mGy-cm, respectively. These indicators are not patient dose, but values generated from the CT scanner acquisition factors. The report includes radiation exposure data for exposures received during this examination. COMPARISON: None FINDINGS: There is no evidence of acute intracranial hemorrhage, extra-axial collection, mass effect, midline shift, herniation or hydrocephalus. The ventricles, sulci and cisterns are age appropriate. The iraheta-white differentiation is intact. The visualized paranasal sinuses and mastoid air cells are clear. The surrounding soft tissues and osseous structures are unremarkable. IMPRESSION: 1. No evidence of acute intracranial abnormality. Radiation optimization: All CT scans at this facility use at least one of these dose optimization techniques: automated exposure control mA and/or kV adjustment per patient size (includes targeted exams where dose is matched to clinical indication) or iterative reconstruction.
--- NOTE | 2025-09-16 03:17 | RADIOLOGY REPORT ---
EXAM: CT CT CERVICAL SPINE HISTORY: progressive LE weakness x2 weeks, mass COMPARISON: None CTDIvol 19.6 mGy, DLP 522.52 mGy*cm. TECHNIQUE: Multiple axial CT images of the spine were obtained using bone algorithm. Axial and coronal reformatting was done. Bone and soft tissue windows were reviewed. FINDINGS: Loss of normal cervical lordosis. No CT evidence of definite acute fracture, spinal dislocation, or significant appearing acute subluxation is seen. The visualized paraspinal soft tissues are grossly unremarkable. Degenerative changes include moderate disc height loss at the C5-C6 and C6-C7 levels with corresponding adjacent endplate sclerosis and anterior osteophytosis. Moderate multilevel bilateral facet hypertrophy. IMPRESSION: 1. No definite CT evidence of acute fracture or dislocation of the bony cervical spine. 2. Degenerative change of the cervical spine.
--- NOTE | 2025-09-16 03:36 | RADIOLOGY REPORT ---
EXAM: CT CT THORACIC SPINE HISTORY: progressive LE weakness x2 weeks, mass COMPARISON: None CTDIvol 25.94 mGy, DLP 1000.05 mGy*cm. TECHNIQUE: Multiple axial CT images of the spine were obtained using bone algorithm. Axial and coronal reformatting was done. Bone and soft tissue windows were reviewed. FINDINGS: No CT evidence of definite acute fracture, spinal dislocation, or significant appearing acute subluxation is seen. The visualized paraspinal soft tissues are grossly unremarkable. Degenerative change at multiple consecutive levels of the thoracic spine includes disc height loss, adjacent endplate sclerosis and anterior osteophytosis. IMPRESSION: 1. No definite CT evidence of acute fracture or dislocation of the bony thoracic spine. 2. Degenerative change of the thoracic spine.
--- NOTE | 2025-09-16 03:47 | RADIOLOGY REPORT ---
Exam: CT CT ABDOMEN PELVIS W/ IV CONTRAST History: R groin pain, /n/v, known hernia, bowel obstruction COMPARISON: None Technique: Multidetector spiral CT of the abdomen and pelvis was performed from lung bases to pubic symphysis. Intravenous contrast was administered during this examination. Portal venous imaging was obtained. Axial, coronal and sagittal multiplanar reformats were performed by the technologist on a separate workstation. Radiation Dose : 1. Abdomen/Pelvis: CTDIvol 26.91 mGy, DLP 1466.11 mGy*cm. CONTRAST: Type of contrast: Contrast injected: ml Contrast ingested: ml Findings: Lung Bases: No acute or significant lung base finding. Normal heart size. No pleural or pericardial effusion. Liver: The liver is normal in size. No focal lesions. Normal hepatic vascular enhancement. Gallbladder and Biliary Tree: Hyperdense material within the gallbladder may represent sludge versus vicarious contrast excretion. Spleen: Unremarkable Pancreas: The pancreas is normal in appearance without focal lesions or abnormal enhancement. Adrenal Glands: Unremarkable Kidneys: No nephrolithiasis or hydronephrosis. Bilateral renal cortical cysts measure 1.2 cm on the left and 1.0 cm on the right. Bladder: Marked urinary bladder distention. Bowel: The stomach is grossly normal in appearance. Small bowel and colon are normal in caliber and distribution. The appendix is not visualized; however, no secondary findings of acute appendicitis identified. Ascites: Absent Lymphadenopathy: No mesenteric, retroperitoneal or periportal lymphadenopathy. Abdominal Wall and Mesentery: Unremarkable. Vasculature: The visualized abdominal aorta is normal in size and caliber. Atherosclerotic vascular calcifications. Abdominal and pelvic vessels demonstrate normal enhancement. Pelvic Organs: Unremarkable. Bilateral fat containing inguinal hernias. Musculoskeletal: No aggressive focal bony lesions, acute fractures or dislocation. IMPRESSION: 1. No acute abdominal or pelvic finding. 2. Hyperdense material within the gallbladder may represent gallbladder sludge versus vicarious contrast excretion. 3. Marked urinary bladder distention. Radiation optimization: All CT scans at this facility use at least one of these dose optimization techniques: automated exposure control mA and/or kV adjustment per patient size (includes targeted exams where dose is matched to clinical indication) or iterative reconstruction.
--- NOTE | 2025-09-16 05:14 | Physician Documentation ---
History of Present Illness General Chief Complaint: Leg Pain Stated Complaint: ABD PAIN Time Seen by MD: 23:03 History of Present Illness Initial Comments This is a 55-year-old male who presented for evaluation of right groin pain similar to pain he associates with the hernia. Has been present for over a year, intermittent, got worse for the last couple of days because it is accompanied by nausea or vomiting. He has been evaluated multiple times for this pain both at [facility] and here. He had several visits on three, twelve for to both facilities, [address] that was done at [facility] showed partially visualized hernia containing bowel without evidence of small bowel obstruction. He is supposed to follow-up with Dr. Kalyan taylor. Incidentally the patient also reports that for the last two weeks he has a developed numbness on his abdomen, a proximally 2 in above his belly button wrapping around both left and right front. Than numbness progressively descended to envelope his belly button. Subsequent to that he had developed numbness on medial anterior thigh, 1st on the left, then on the right. Then the numbness had progressed down the left leg, then down the right leg. He has been developing weakness in bilateral lower extremities for the last week or so. He states that for the last two days he has not been able to ambulate and is not able to move his leg on the left side against gravity. He states that he has a very remote history of IV drug use, none recently. He does not not have any ev aluation for this numbness. At the time of my examination he denies any urinary incontinence, fecal incontinence, denies blood dyscrasias, denies use of blood thinners, denies history of diabetes, denies urinary retention. He denies saddle paresthesias when inquired in plain [place]. Denies penile numbness. Denies any other symptoms. Medication Reconciliation Allergies: Coded Allergies: amoxicillin (Verified Allergy, Unknown, 09/14/25) Scheduled Clopidogrel Bisulfate (Plavix), 1 TAB PO DAILY Elviteg/Cady/Emtric/Tenofo Ala (Genvoya Tablet), 1 TAB PO DAILY, (Reported) Promethazine Hcl (Phenergan), 1 TAB PO Q6H Past Medical History Past Medical History: No Pertinent History, Coronary Artery Disease, HIV Lives In: Home Review of Systems ROS 10 point review of systems was performed and unless noted above in HPI is negative for acute process/complaint. Physical Exam Physical Exam Vital Signs: Heart Rate: 92, Respiratory Rate: 16, BP: 161/98, Pulse Oximetry: 97, Weight: 77.270 Physical Exam GENERAL: Awake, alert, oriented, GCS 15, no apparent distress, non-toxic appearing, answers questions, follows commands appropriately. HEENT: Atraumatic, normocephalic, pupils equal, extraocular muscles intact, sclerae anicteric, mucus membranes moist, oropharynx is clear, no stridor. NECK: supple, full active range of motion, trachea midline, no thyromegaly, no lymphadenopathy, no JVD. CARDIOVASCULAR: regular rate/rhythm, no murmurs/gallops/rubs, Pulses are 2+ in all extremities and symmetric. Capillary refill less than 2 seconds. PULMONARY: Nonlabored, good air movement ,no respiratory distress, speaking in full sentences, clear to auscultation bilaterally, no wheezing, no ronchi, no rales, no accessory muscle use. GASTROINTESTINAL: Soft, non-tender, non-distended, normal active bowel sounds, no organomegaly, no pulsatile masses, no CVA tenderness. NEUROLOGIC: Lucid with normal mental status. Normal facial symmetry. Moves bilateral upper extremities symmetrically and with purpose. No truncal ataxia. Speech is fluid without evidence of dysarthria or aphasia, left lower extremity strength is 3/5, right lower extremity strength 4/5. There is decreased sensation in all dermatomes of the left lower extremity and right lower extremity. There is decreased sensation to light touch on his abdomen from T8 dermatome down. MUSCULOSKELETAL: There is full range of motion of all extremities. There is no joint pain or joint swelling or joint erythema. There is no muscle pain or tenderness or swelling. EXTREMITIES: warm, well-perfused, no cyanosis, no clubbing, no edema, no acute deformities. Skin: warm, dry, no rashes or lesions, no jaundice, no petechiae orpurpura. No ecchymosis. PSYCHIATRIC: Normal affect, normal insight, normal concentration. Focused exam: Progress Results/Orders Results/Orders Orders - AKSHAT REDMAN DO Culture Blood (09/16/25 00:26) Saline Lock (09/16/25 00:26) Ct Head (09/16/25 00:26) Ct Cervical Spine (09/16/25 ) Ct Thoracic Spine (09/16/25 ) Ct Abdomen Pelvis (09/16/25:) Mri C Spine (09/16/25:) Mri Lumbar Spine (09/16/25:26) Mri Thoracic Spine (09/16/25 ) Ct L Spine Reconstructiion (09/16/25 ) Completed Orders - AKSHAT REDMAN DO Electrocardiogram (09/16/25:) Cbc/Diff (09/16/25:) ESR (09/16/25:) C-Reactive Protein (09/16/25:) Pt Inr (09/16/25:) PTT (09/16/25:) MG (09/16/25:) CMP (09/16/25:) Lacticsepsis (09/16/25:) Procalcitonin (09/16/25:) Ct Head (09/16/25:) Ct Cervical Spine (09/16/25 ) Ct Thoracic Spine (09/16/25 ) Ct Abdomen Pelvis (09/16/25:) Iohexol 300mg/Ml 100ml Inj. (Omnipaque-3 (09/16/25 02:15) Ct L Spine Reconstructiion (09/16/25 ) Vital Signs 09/15/25 22:49 Pulse 92 Resp 16 B/P (MAP) 161/98 Pulse Ox 97 Laboratory Tests Test 09/16/25 01:06 White Blood Count 5.8 Red Blood Count 5.54 Hemoglobin 13.9 L Hematocrit 42.1 Mean Corpuscular Volume 76.1 L Mean Corpuscular Hemoglobin 25.0 L Mean Corpuscular Hemoglobin Concent 32.9 L Red Cell Distribution Width 14.4 Platelet Count 298 Mean Platelet Volume 6.8 L Neutrophils (%) (Auto) 63.0 Lymphocytes (%) (Auto) 19.2 L Monocytes (%) (Auto) 13.9 H Eosinophils (%) (Auto) 2.6 Basophils (%) (Auto) 1.3 H Neutrophils # (Auto) 3.7 Lymphocytes # (Auto) 1.1 Monocytes # (Auto) 0.8 Eosinophils # (Auto) 0.2 Basophils # (Auto) 0.1 CBC Comment Erythrocyte Sedimentation Rate 10 Prothrombin Time 10.7 INR International Normalized Ratio 1.0 Activated Partial Thromboplast Time 25 Coagulation Comments Sodium Level 133 L Potassium Level 4.4 Chloride Level 98 L Carbon Dioxide Level 29.9 Anion Gap 5 L Blood Urea Nitrogen 29 H Creatinine 1.03 Estimated GFR/1.73 m2 75 BUN/Creatinine Ratio 28.2 H Glucose Level 99 Lactic Acid Level 0.9 Calcium Level 8.9 Magnesium Level 2.5 H Total Bilirubin 0.4 Aspartate Amino Transf (AST/SGOT) 23 Alanine Aminotransferase (ALT/SGPT) 18 Alkaline Phosphatase 92 C-Reactive Protein 0.35 Total Protein 8.3 H Albumin 3.7 Globulin 4.6 H Albumin/Globulin Ratio 0.8 L Procalcitonin < 0.05 Chemistry Comments Microbiology Date/Time Source Procedure Growth Status 09/16/25 01:11 Blood Hand Left Blood Culture - Preliminary NEGATIVE (LESS THAN 24 HOURS) Resulted Medical Decision Making Additional information obtaine: old records Findings Facility Status: ED Holds, E process The plan was discussed with the patient, who demonstrates clear understanding of the plan and is in agreement with the plan unless otherwise noted in the chart. All questions have been answered, all concerns were addressed unless otherwise documented. I was available throughout their ED stay for frequent reassessment and questions. Differential Diagnoses (considered and possible or likely): [With respect to his groin pain and abdominal pain, most likely represents the hernia related pain, less likely strangulated hernia or incarcerated hernia as there was no cutaneous changes. Significantly less likely acute intra-abdominal process such as appendicitis, cholecystitis, SBO, volvulus. I very concerned about this new onset progressive worsening abdominal and lower extremity numbness and lower extremity weakness. Differential includes but not limited to epidural abscess, epidural hematoma, less likely lumbar spine fracture or subluxation. Cauda equina or conus medullaris are also in differential diagnosis. Guillain-Trenton had also been considerably. Unlikely stroke or intracranial neoplasm.] ??Differential Diagnoses (considered and unlikely, not requiring evaluation currently): [No evidence of traumatic injury] MDM Data Please see HPI for the following: Independent Historians and external Records Review. Historian: [Patient] Independent Historians: ?[Record review] Medication Management: [Reviewed medication list] Social History and determinants: [Reviewed] Please see the body of the note for the following: Any independent interpretations of ECG, imaging studies. All vitals signs/haemodynamics, ordered tests were independently reviewed and interpreted by myself. Nursing triage complaint and vitals reviewed, additional nursing notes were reviewed as available and I agree unless otherwise noted or documented in contradiction in the chart Vital Signs: Independently reviewed Labs: Independently interpreted Imaging: Independently interpreted Old Medical Records: Independently reviewed, see HPI for relevant summary and information Pulse Oximetry: [97%] interpreted as [normal on room air] by me [Spine Nurse: [Regular Rate, Regular rhythm, no ectopy, NSR] reviewed and interpreted by me] Additionally notably showing: [Hemodynamics reviewed. The patient is not febrile, not tachycardic, no evidence of hypotension respiratory distress. CBC normal ESR is normal. Coagulation panel is unremarkable. Metabolic panel notable for dehydration. Procalcitonin is normal. Lactic acid was normal. CRP is slightly elevated. This facility does not not have MRI overnight. CT head was obtained to evaluate for potential intracranial neoplasm. It shows no evidence of acute intracranial abnormality. CT of the abdomen and pelvis was obtained showing no acute intra-abdominal process. There is a marked urinary bladder distention. CT thoracic spine did not reveal any acute process. CT of the cervical spine shows no definitive fracture or subluxation.] Tests considered but not ordered include: [MRI will be done on a day shift in the emergent fashion.] Social Determinants of Health Impact: Patient was evaluated in [facility], [facility] [place] limited access to healthcare due to below par ratio of patient to medical providers. [] Comorbid Conditions Impacting Present Evaluation and Care/Treatment: [None reported, very remote IV drug use] Management Discussions with other Healthcare Providers: [] Treatment and Disposition Medication Management (Given or considered): []. See EMR for details Consideration for Hospitalization/Escalation/Deescalation of Care: Patient will likely require transfer for neurosurgical consultation. ?ED Course:?[After in the distended bladder was discovered on a CT scan, the patient has a Mcintyre catheter placed. He drained greater than 1400s of urine and it is important to note that during the Mcintyre catheter placement, he did not have light touch or cold sensation to the head of the penis or the perineum. The patient was not aware of this is deficits.] ?Shared decision making:?[] Code status:?FULL Please see the full Electronic Medical Record for full details of nursing documentation, medications list, other records of complete past medical history and conditions, vital signs, laboratory studies, and any radiologic study interpretations by radiologists. Portions of this note were completed using [employer] dictation software and as a result there may exist minor errors in spelling. I have reviewed elements of past family and social history and agree as included in note. Differential Diagnosis See body of the main note for differential diagnosis Departure Disposition: 30 STILL A PATIENT Impression: Primary Impression: Paresthesia of saddle area Additional Impressions: Left leg weakness Left leg numbness Right leg weakness Right leg numbness Acute urinary retention Right groin pain Unable to ambulate Condition: Critical Referrals: NO PRIMARY CARE PROVIDER (PCP) Critical Care Note Critical Care Note CRITICAL CARE TIME: [35] minutes Treatments/Evaluations: Close monitoring and treatment of unstable vital signs, cardiorespiratory, and neurologic status, while maintaining tight balance of fluid, respiratory, and cardiac interventions. This time includes discussing the case with the patient and the patients family. This time does not include all procedures stated elsewhere in this record. This time also includes reviewing old records, labs and radiological studies. This time includes examining and re-examining the patient. Additionally, this time also includes arranging care with admitting and consulting physicians. Signature Scribe Signature: No scribe Attestation: The note accurately reflects work and decisions made by me.Akshat Redman, 09/16/25 05:19 AKSHAT REDMAN DO Sep 16, 2025 05:14
[2025-09-16] MEDS: ketorolac trometh 30MG/ML vial 30 MG/ML VIAL IV ONE (07:11)
[2025-09-16] MEDS: ketorolac trometh 15mg/ml vial 15 MG/ML ML IV ONE (07:11)
--- NOTE | 2025-09-16 10:22 | RADIOLOGY REPORT ---
CLINICAL INFORMATION: Progressive bilateral lower extremity weakness. TECHNIQUE: Multisequence multiplanar MRI images of the cervical spine were obtained without contrast. COMPARISON: CT CT CERVICAL SPINE on DOS: 09/16/25 FINDINGS: Bones: Straightening of the normal cervical lordosis. No significant spondylolisthesis. Vertebral body heights are maintained. Posterior elements are intact. No acute fracture. No focal suspicious marrow signal abnormality. Spinal cord: Spinal cord is normal in signal intensity and morphology. Paraspinal soft tissues: Paraspinal and prevertebral soft tissues are unremarkable. Other: No other significant findings. Cervical disc levels: C2-C3: Disc desiccation with mild disc bulge superimposed on congenital spinal canal narrowing causing [id number] spinal canal stenosis. Facet and uncinate hypertrophy with mild bilateral neural foraminal stenoses. C3-C4: Disc desiccation with mild disc bulge superimposed on congenital spinal canal narrowing, causing moderate spinal canal stenosis. Facet and uncinate hypertrophy with moderate bilateral neural foraminal stenoses. C4-C5: Disc desiccation. Mild disc bulge and congenital spinal canal narrowing contributes to moderate spinal canal stenosis and partial effacement of the lateral recesses. Facet and uncinate hypertrophy with moderate bilateral neural foraminal stenoses. C5-C6: Disc desiccation with moderate disc space narrowing and diffuse disc bulge causing moderate spinal canal stenosis, abutting the ventral aspect of the spinal cord and effacing the lateral recesses. Congenital spinal canal narrowing also contributes to the spinal canal stenoses. Facet and uncinate hypertrophy with severe bilateral neural foraminal stenoses. C6-C7: Disc desiccation with moderate disc space narrowing and mild diffuse disc bulge and congenital spinal canal narrowing contributing to moderate spinal canal stenosis. Small left subarticular disc protrusion effaces the left lateral recess. Mild partial effacement of the right lateral recess due to the disc bulge. Facet and uncinate hypertrophy with moderate to severe bilateral neural foraminal stenoses. C7-T1: Disc desiccation with moderate disc space narrowing. Central disc protrusion and congenital spinal canal narrowing contributes to moderate spinal canal stenosis. Facet and uncinate hypertrophy with [id number] left neural foraminal stenosis. IMPRESSION: 1. Degenerative disc disease and facet/ uncinate disease in the cervical spine with associated spinal canal, subarticular, and neural foraminal stenoses as detailed above. 2. Congenital spinal canal narrowing contributes to the spinal canal stenoses. 3. Straightening of the normal cervical lordosis. No significant spondylolisthesis. 4. No signal abnormality in the spinal cord to suggest myelopathy.
--- NOTE | 2025-09-16 10:36 | RADIOLOGY REPORT ---
EXAM: MR MRI THORACIC SPINE CLINICAL HISTORY: progressive BLE weakness, umbness, mass vs abscess COMPARISON: CT CT THORACIC SPINE on DOS: 09/16/25 TECHNIQUE: MRI imaging of the thoracic spine was performed on a MR imaging system without intravenous contrast. FINDINGS: Adequate Study Quality Alignment: Normal. Vertebrae: Normal. Vertebral Marrow: Normal. Epidural Space: Normal. Spinal Cord: Normal. Discs: Normal. Ligaments: Normal. Other None. IMPRESSION: 1. Normal MRI of the Thoracic Spine.
--- NOTE | 2025-09-16 12:03 | RADIOLOGY REPORT ---
MR lumbar spine HISTORY: progressive BLE weakness, umbness, mass vs abscess TECHNIQUE: MR was performed with a surface coil at 1.5 T magnet. Sagittal, axial and coronal T1 and T2-weighted images were obtained. FINDINGS: Lumbar vertebrae are normal in height and signal intensity and alignment. No Modic type changes seen in the vertebral endplates. At L1-2 loss of disc height and signal intensity. No disc protrusion. No narrowing of the central canal and neural foramina At L2-3 loss of disc height and signal intensity. 2 mm diffuse disc bulge due to an annular tear. This effaces the thecal sac without significant narrowing of the central canal and neural foramina At L3-4 loss of disc height and signal intensity. There is 2 mm disc bulge due to an annular tear with disc material effacing the thecal sac but not causing significant narrowing of the central canal and neural foramina At L4-5 loss of disc height and signal intensity. Broad-based 2-3 mm disc bulge due to an annular tear causing effacement of the thecal sac but no narrowing of the neural foramina At L5-S1 transitional vertebrae. No significant narrowing of the central canal and neural foramina Cord ends at T12-L1 and is normal in appearance IMPRESSION: 1. Mild diffuse annular bulges of the L2-3, L3-4 and L4-5 discs without significant narrowing of the central canal or evidence of nerve root compression
--- NOTE | 2025-09-16 12:33 | Physician Documentation ---
Addendum This 55-year-old male presented with progressive neurologic symptoms over the past two weeks consisting of: Paresthesia of saddle area Left leg weakness Left leg numbness Right leg weakness Right leg numbness Acute urinary retention Right groin pain Inability to ambulate He underwent gerardo scanning which was unrevealing (including reconstructions of the spine) and MRI studies of the cervical, thoracic and lumbar spine which did not reveal an explanation for his symptoms. I obtained a [facility] neurology consultation. The neurologist interviewed the patient and requested repeat cervical and thoracic MRIs with contrast in order to rule out transverse myelitis. I have ordered these studies. 09/16/2025, 5:39 p.m.: MRIs of the cervical and thoracic spine with contrast did not show findings to explain the patient's symptoms. There were no findings to suggest the urgent need of a neurosurgeon on the MRI studies. Therefore, it seems reasonable to admit this patient here for further evaluation. Departure Disposition: 09 ADMITTED INPATIENT Admitted to Inpatient Unit: to hospitalist Admission Level of Care: Med/Surg Impression: Primary Impression: Multiple neurological symptoms Condition: Guarded HIRAM MAYS MD Sep 16, 2025 12:33
--- NOTE | 2025-09-16 13:59 | [facility] CONSULT REPORT ---
[facility] Procedure Note [facility] Procedure Note Consult [facility] Note # Demographics Consult Type: General Neurology Patient Location: Emergency Room First Name: MARY Last Name: KATH Date of : 1970 Age: 55 Gender: Male Facility: [facility] Time of Initial Page (): 09/16/2025 12:35 First Contact with Site (): 09/16/2025 12:35 # HPI Chief Complaint: - weakness (focal) History: 55 yo M p/w progressive descending numbness and weakness for 2 weeks. He developed a band like numbness in the upper part of his abdomen 2 weeks ago, then his entire abdomen in a few days. He then developed saddle anesthesia and urinary retention. 3 days ago, he developed bilateral leg weakness and numbness. Hx of HIV and on therapy. # Exam Mental Status: - awake - alert and oriented x 3 - follows commands Language: - normal speech - no aphasia - no dysarthria Cranial Nerves: - extra ocular movements intact - no facial droop - normal facial sensation Motor: - bilateral lower extremity weakness LLE worse than RLE Sensory: Sensory level below nipple line Cerebellar: - normal cerebellar exam # ROS Additional: - complete review of systems otherwise negative # PMH-FH-SH Past Medical History: HIV # Assessment Impression: Descending paresthesia and paraplegia, concern for myelopathy # Plan Labs: - B12 - TSH - ESR - folate acid, copper, Mg Imaging: (urgency: routine): - MRI C spine with IV contrast - MRI T spine with IV contrast Diagnostic Test: If MRI unrevealing, obtain LP with basic profile and [facility] myelopathy panel Therapy/Evaluation: - PT/OT evaluation Other: - If patient has any neurological deterioration please call me back immediately - I have discussed my recommendations with the referring provider # Logistics Attestation of consult completion: The patient is located at: [facility]. Facility staff participated in the visit. I performed this telemedicine visit from my offsite office utilizing interactive 2 way audio and visual telecommunication technology at the request of the onsite emergency room provider. Total time spent in telemedicine encounter: I spent 23 minutes reviewing clinical data and/or imaging, obtaining history, examining the patient, communicating with the onsite care team, and in preparation of this report. # Demographics First Name: MARY Last Name: KATH Facility: [facility] Electronically signed at 09/16/2025 13:58 (George Time) by Darwin Samuels MD Neuro Consult Order placed for: Yes DARWIN SAMUELS MD Sep 16, 2025 13:59
--- NOTE | 2025-09-16 16:18 | RADIOLOGY REPORT ---
CLINICAL HISTORY: Transverse myelitis. TECHNIQUE: Precontrast non-fat saturated axial T1 images and postcontrast fat saturated axial and sagittal images were obtained. 15 mL Clariscan contrast was administered for the postcontrast images. The rest of the precontrast images were performed earlier the same day and reported separately. COMPARISON: MR MRI THORACIC SPINE on DOS: 09/16/25, CT CT THORACIC SPINE on DOS: 09/16/25 FINDINGS: There is no enhancing lesion in the spinal cord. No abnormal epidural or leptomeningeal enhancement. No abnormal paraspinal enhancement is seen. No enhancing mass identified. IMPRESSION: 1. No abnormal enhancement identified. 2. Refer to the separately dictated same day noncontrast enhanced MRI thoracic spine report for additional findings.
--- NOTE | 2025-09-16 16:30 | RADIOLOGY REPORT ---
CLINICAL INFORMATION: Transverse myelitis. TECHNIQUE: Axial and sagittal postcontrast T1 fat saturated images of the cervical spine were obtained. Precontrast imaging was performed earlier the same day and dictated separately. COMPARISON: MR MRI C SPINE on DOS: 09/16/25, CT CT CERVICAL SPINE on DOS: 09/16/25 FINDINGS: Motion artifact limits evaluation. No abnormal enhancing lesion in the cervical spine. No abnormal epidural or leptomeningeal enhancement. Minimal enhancement is seen adjacent to the distal aspects of the C7 and T1 spinous processes, which is nonspecific, may be inflammatory in nature. IMPRESSION: 1. Minimal enhancement adjacent to the distal aspects of the C7 and T1 spinous processes, may be due to nonspecific inflammation or mild supraspinous ligament sprains in the appropriate clinical setting. 2. Refer to the separately dictated noncontrast enhanced MRI cervical spine exam report for additional findings.
[2025-09-16] MEDS ORDERED: magnesium sulf-water 2g/50mL 50 ML IV PRN (17:55)
[2025-09-16] MEDS ORDERED: potassium Cl 40MEQ/1/2NS 520ml 520 ML IV PRN (17:55)
[2025-09-16] MEDS ORDERED: mag hydrox/Alum hydrox/simeth 30ml oral suspension PO PRN (17:55)
[2025-09-16] MEDS ORDERED: morphine 4 MG/ML inj SYRINge IV PRN (17:55)
[2025-09-16] MEDS ORDERED: magnesium Cl slow-release 64mg tablet PO PRN (17:55)
[2025-09-16] MEDS ORDERED: potassium Cl 20 mEq SR tablet PO PRN ×2 (17:55)
[2025-09-16] MEDS: normal saline 1000ml 1,000 ML IV SCH (17:55)
[2025-09-16] MEDS ORDERED: magnesium sulf-water 4G/100mL 100 ML IV PRN (17:55)
[2025-09-16] MEDS: GADOTERATE MEGLUMINE 7.5 MMOL/15 ML VIAL IV ONE (19:14)
[2025-09-16] MEDS: heparin, porcine 5000 units/ml vial SQ SCH (19:21)
[2025-09-16] MEDS: docusate sod 100mg capsule PO SCH (19:21)
--- NOTE | 2025-09-16 19:28 | HISTORY AND PHYSICAL-Residence ---
History & Physical Providers to CC Resident Creating Document: RIGOBERTO CERDA, RES ~ History of Present Illness Reason for Admit\Complaint: Abdominal pain, lower extremity loss of sensation History of Present Illness The patient is a 55-year-old male with a history of HIV (on Genvoya since 1995) and coronary artery disease status post stent placement (not currently on medications) who presents with a two-week history of progressive neurologic symptoms. His symptoms began with a band-like numbness in the upper abdomen that spread to involve the entire abdomen within a few days, followed by saddle anesthesia and acute urinary retention. Over the past three days, he developed bilateral lower extremity weakness and numbness, now severe enough that he is unable to ambulate. He also reports right groin pain and intermittent abdominal discomfort related to a known right inguinal hernia without erythema or redness. Associated symptoms include nausea, mild headache, and anxiety. He denies rash, recent wounds, surgery, new medications, insect bites, chemical exposure, or recent hiking. He reports eating a lot of canned foods and states he has never experienced a similar episode before. Allergies: Coded Allergies: amoxicillin (Verified Allergy, Unknown, 09/14/25) Home Medications Home Medications Active Phenergan (Promethazine Hcl) 12.5 Mg Tablet 1 Tab PO Q6H 7 Days Plavix (Clopidogrel Bisulfate) 75 Mg Tablet 1 Tab PO DAILY 30 Days Reported Genvoya Tablet (Elviteg/Cady/Emtric/Tenofo Ala) 1 Each Tablet 1 Tab PO DAILY 30 Days Past Medical History Past Medical History CAD s/p stent placement HIV Past Surgical History Surgical History Comment None Past Social History Social History Comment Smokes 3 cigarettes per day Occasional alcohol user Uses methamphetamine and marijuana Lives in home alone and able to ambulate without any assistance Lives In: Home ROS ROS Negative except mentioned in the HPI Exam Vitals: Vital Signs Date Time Temp Pulse Resp B/P (MAP) Pulse Ox O2 Delivery O2 Flow Rate FiO2 09/16/25 18:04 90 12 152/98 (116) 100 09/16/25 14:15 1.0 General: Awake , alert, and oriented x4 HEENT: Atraumatic, normocephalic, EOMI, anicteric sclera ; pink conjunctiva Neck: Trachea midline. Supple, full range of motion, no JVD Cardiac: Regular rhythm, regular rate with no murmurs all over the precordium. Respiratory: Equal breath sounds bilaterally, no tachypnea, no wheezing ,rub or rales, Chest wall is symmetric and without deformity. Gastrointestinal: Abdomen symmetric, non-distended, soft, mild tenderness on palpation is present, normal bowel sounds x4 quadrant, normoactive, no hepatosplenomegaly Musculoskeletal: No pedal edema -reducible inguinal hernia present on examination Neurological: Mental status exam: alert and consciousness, orientation, memory, speech - Cranial nerve test: Cranial nerves 2-12 are intact - Motor system: Grade 1/4 in left lower extreme, grade 2/4 in right lower extremity - Sensory system: Loss of sensation in the left lower extreme - Reflex testing: Biceps, triceps Normal, decreased reflexes on bilateral lower extremities - Cerebellar: Normal Skin: Warm and dry Extremities : No Edema, peripheral pulses felt, No deformities Psychiatric:Appropriate mood and affect,No hallucinations or suicidal ideation Diagnostic Data Last Recorded Lab Results: 09/16/25 0106 09/16/25 0106 Diagnostic Data: Laboratory Tests Test 09/16/25 01:06 Prothrombin Time 10.7 SECONDS (9.0-12.0) INR International Normalized Ratio 1.0 INR Activated Partial Thromboplast Time 25 SECONDS (22-32) Coagulation Comments Advance Care Planning Advanced Care plannin - 30 Minutes Additional Plan 55 years old male history of HIV and coronary artery disease status post stent placement is currently evaluated for descending paralysis Descending paralysis under evaluation Differentials-viral, B12 deficiency TSH-1.36, procalcitonin 0.05, ESR 10 Ruled out transverse mellitus In ED- Cervical spine, thoracic spine CT-shows degenerative changes but no evidence of fracture Abdomen/pelvis CT shows biliary sludge and marked urinary retention Head CT ruled out bleeding Cervical spine MRI-degenerative changes, thoracic spine MRI-normal MRI of the lumbar spine- Mild diffuse annular bulges of the L2-3, L3-4 and L4-5 discs without significant narrowing of the central canal or evidence of nerve root compression MRI of the cervical spine with contrast-Minimal enhancement adjacent to the distal aspects of the C7 and T1 spinous processes, may be due to nonspecific inflammation or mild supraspinous ligament sprains in the appropriate clinical setting. MRI of the thoracic spine with contrast-. No abnormal enhancement identified. Tele neurology recommended lumbar puncture and PT Continue monitoring the patient with telemetry, regular PT Coronary artery disease status post stent placement in 2022 Patient denies taking any medication at home History of HIV Continue home med after med rec Hyponatremia Started normal saline 75 cc/hour substance use disorder Follow up with U tox Disposition-patient will be monitored in ortho with telemetry, regular PT-lumbar puncture tomorrow in a.m. Code Status: Full DVT prophylaxis: Heparin subQ Analgesia/Sedation: Morphine Line/tube: Peripheral Nutrition: Regular PT: Ordered Prognosis: Ordered Rigoberto Cerda PGY1-Internal Medicine Resident Date of Service: Sep 16, 2025 Billing Provider: JOSH MORA MD Common Visit Codes: 52144-MZNHASQ INP/OBS CARE (HIGH) Secondary Visit Codes: 72164-DCEXXRMX CARE PLAN 30 MINUTES RIGOBERTO CERDA, RES Sep 16, 2025 19:28 JOSH MORA MD Sep 18, 2025 06:58
[2025-09-16 20:00] VITALS: BP 155/100; PULSE 93; RESP 16; TEMP 97.3; O2SAT 95
[2025-09-16] MEDS: morphine 4 MG/ML inj SYRINge IV PRN (20:15)
[2025-09-16] MEDS: K and/or MAG REPLACEMENT MC SCH (21:02)
[2025-09-17 03:33] LABS: LEUKOCYTE ESTERASE ,URINE NEGATIVE (Neg); NITRITES, URINE NEGATIVE (Neg); OCCULT BLOOD,URINE NEGATIVE (Neg); UA COLLECTION TYPE CLN CATCH MIDSTREAM
[2025-09-17 03:34] LABS: SQUAMOUS EPITHELIAL CELL,UR NONE SEEN /LPF (FEW)
[2025-09-17 03:56] LABS: URINE AMPHETAMINE SCREEN POSITIVE (Neg); URINE BARBITUATE SCREEN NEGATIVE (Neg); URINE BENZODIAZEPINES SCREEN NEGATIVE (Neg); URINE CANNABINOID SCREEN NEGATIVE (Neg); URINE COCAINE SCREEN NEGATIVE (Neg); URINE METHADONE SCREEN NEGATIVE (Neg); URINE OPIATE SCREEN POSITIVE (Neg); URINE PHENCYCLIDINE SCREEN NEGATIVE (Neg)
[2025-09-17 06:00] VITALS: BP 154/102; PULSE 93; RESP 18; TEMP 97.8; O2SAT 99
[2025-09-17 06:11] LABS: MEAN PLATELET VOLUME 7.4 FL (7.4-10.4); RED CELL DISTRIBUTION WIDTH 14.1 % (11.5-14.5)
[2025-09-17 06:22] LABS: CREATININE 1.07 MG/DL (0.60-1.10); TOTAL CARBON DIOXIDE 33.7 MMOL/L (24-32); eCRCL 77 ML/MIN; eGFR 71 ML/MIN
[2025-09-17 07:15] VITALS: BP 161/104; PULSE 89; RESP 18; TEMP 97.5; O2SAT 99
[2025-09-17] MEDS: hydrALAZINE 20mg/ml inj. IV PRN (07:57)
[2025-09-17] MEDS ORDERED: SULF-16 PO (09:33)
[2025-09-17 10:00] VITALS: BP 147/93; PULSE 86; RESP 17; TEMP 97.6; O2SAT 98
[2025-09-17 16:59] VITALS: BP_SYST 150; BP_SYST 172; BP_DIAS 100; BP_DIAS 103; PULSE 92; PULSE 93
[2025-09-17 18:00] VITALS: BP 172/100; PULSE 93; RESP 16; TEMP 97.7; O2SAT 100
--- NOTE | 2025-09-17 19:18 | PROGRESS NOTE- Residence ---
Progress Note - Resident Providers to CC Resident Creating Document: RIGOBERTO CERDA, RES ~ Antibiotic Timeout Antibiotic Ordered?: No Subjective Seen and examined patient at the bedside, no overnight events recorded, no improvement in his symptoms patient developed a blood pressure. Initially plan for lumbar puncture but turned out to be with traumatic and right of way supervisor recommended to do lumbar puncture with anesthesia tomorrow. but As patient has sudden onset of descending paralysis we spoke to case managers regarding inpatient neurology transfer. And his managers are working for transfer to [facility] [[email or web address]] for Neurology Services Objective Vital Signs Date Time Temp Pulse Resp B/P (MAP) Pulse Ox O2 Delivery O2 Flow Rate FiO2 09/17/25 18:00 97.7 93 16 172/100 (124) 100 Room Air 09/16/25 14:15 1.0 Result Diagram: 09/17/25 0502 09/17/25 0502 Awake , alert, and oriented x4 HEENT: Atraumatic, normocephalic, EOMI, anicteric sclera ; pink conjunctiva Neck: Trachea midline. Supple, full range of motion, no JVD Cardiac: Regular rhythm, regular rate with no murmurs all over the precordium. Respiratory: Equal breath sounds bilaterally, no tachypnea, no wheezing ,rub or rales, Chest wall is symmetric and without deformity. Gastrointestinal: Abdomen symmetric, non-distended, soft, mild tenderness on palpation is present, normal bowel sounds x4 quadrant, normoactive, no hepatosplenomegaly Musculoskeletal: No pedal edema -reducible inguinal hernia present on examination Neurological: Mental status exam: alert and consciousness, orientation x3, memory, speech - Cranial nerve test: Cranial nerves 2-12 are intact - Motor system: Bulk normal in bilateral upper and lower extremity Tone-bilateral upper extremity normal and decreased in bilateral lower extremity no rigidity Strength-upper extremity bilateral 5/5-no pronator drift Lower extremity-right 1/5 and left 0/5 Reflexes-upper extremity bilateral 2+: Biceps, triceps, brachioradialis Lower extremity-knee and [id number] Babinski sign-absence - Sensory system: Upper extremity bilateral normal, lower extremity bilateral pain, touch, pressure-normal Abdomen-decreased sensation to pain and touch in T11 dermatome - Cerebellar: Normal finger-nose test, no dysdiadochokinesia Gait-could not elicited Skin: Warm and dry Extremities : No Edema, peripheral pulses felt, No deformities Psychiatric:Appropriate mood and affect,No hallucinations or suicidal ideation Coagulation Studies Laboratory Tests Test 09/16/25 01:06 Prothrombin Time 10.7 SECONDS (9.0-12.0) INR International Normalized Ratio 1.0 INR Activated Partial Thromboplast Time 25 SECONDS (22-32) Coagulation Comments Advance Care Planning Advanced Care plannin - 30 Minutes Assessment Assessment Descending paralysis under evaluation Differentials-viral, B12 deficiency TSH-1.36, procalcitonin 0.05, ESR 10 Ruled out transverse mellitus In ED- Cervical spine, thoracic spine CT-shows degenerative changes but no evidence of fracture Abdomen/pelvis CT shows biliary sludge and marked urinary retention Head CT ruled out bleeding Cervical spine MRI-degenerative changes, thoracic spine MRI-normal MRI of the lumbar spine- Mild diffuse annular bulges of the L2-3, L3-4 and L4-5 discs without significant narrowing of the central canal or evidence of nerve root compression MRI of the cervical spine with contrast-Minimal enhancement adjacent to the distal aspects of the C7 and T1 spinous processes, may be due to nonspecific inflammation or mild supraspinous ligament sprains in the appropriate clinical setting. MRI of the thoracic spine with contrast-. No abnormal enhancement identified. Tele neurology recommended lumbar puncture and PT Initially plan for lumbar puncture but turned out to be with traumatic and right of way supervisor recommended to do lumbar puncture with anesthesia tomorrow But deferring Lumber puncture. As patient has sudden onset of descending paralysis we spoke to case managers regarding inpatient neurology transfer. And his managers are working for transfer to [facility] [[email or web address]] for Neurology Services Coronary artery disease status post stent placement in 2022 Patient denies taking any medication at home History of HIV Continue home med Continue trimethoprim sulfamethoxazole for prophylaxis Hyponatremia Started normal saline 75 cc/hour substance use disorder Negative Disposition-patient will be monitored in ortho with telemetry, case managers working for transfer to [facility] [[email or web address]] Code Status: Full DVT prophylaxis: Heparin subQ Analgesia/Sedation: Morphine Line/tube: Peripheral Nutrition: Regular PT: Ordered Prognosis: Ordered Rigoberto Cerda PGY1-Internal Medicine Resident Date of Service: Sep 17, 2025 Billing Provider: JOSH MORA MD, SATISH, RES Sep 17, 2025 19:18
[2025-09-17] MEDS: HYDROcodone/acetaminophen 5mg/325mg tablet PO PRN (19:30)
[2025-09-17] MEDS: sulfamethoxazole/trimethoprim DS (800/160mg) tablet PO SCH (19:30)
--- NOTE | 2025-09-17 20:13 | DISCHARGE SUMMARY-Residence ---
Discharge Summary Providers to CC Resident Creating Document: ROMA CERDA, RES ~ Discharge Summary Admission Diagnosis: Decending Paralysis Hospital Course DATE OF ADMISSION: 09/16/2025 DATE OF DISCHARGE: 09/17/2025 Discharge Diagnosis\Comment: Descending paralysis Operations\Procedures: None Consultants: None Complications: None Condition on DC: Stable for transfer Discharge Summary: History of present illness The patient is a 55-year-old male with a history of HIV (on Genvoya since 1995) and coronary artery disease status post stent placement (not currently on medications) who presents with a two-week history of progressive neurologic sym ptoms. His symptoms began with a band-like numbness in the upper abdomen that spread to involve the entire abdomen within a few days, followed by saddle anesthesia and acute urinary retention. Over the past three days, he developed bilateral lower extremity weakness and numbness, now severe enough that he is unable to ambulate. He also reports right groin pain and intermittent abdominal discomfort related to a known right inguinal hernia without erythema or redness. Associated symptoms include nausea, mild headache, and anxiety. He denies rash, recent wounds, surgery, new medications, insect bites, chemical exposure, or recent hiking. He reports eating a lot of canned foods and states he has never experienced a similar episode before. Hospital course This is a 55-year-old male with a history of abdominal pain related to a groin hernia who presented to the ED with sudden onset of left lower extremity weakness, making it difficult for him to walk. The symptoms began two weeks ago with loss of sensation around the T11 region of the abdomen, which later progressed to the left lower extremity and has been slowly worsening, now involving the right lower extremity as well. His upper extremities are normal, and there are no bulbar symptoms. In the ED, imaging and blood work were performed and did not reveal any significant findings. Tele neurology was consulted and recommended lumbar puncture with [facility] ER CSF panel, A lumbar puncture was initially planned but was traumatic. Today, the patient reports worsening weakness in the right lower extremity. Given the progression, we determined that transfer to a higher-level neurology facility would be beneficial. During the hospital course, we managed his pain and blood pressure. Today, I discussed the case with Dr. Ana Byrd at [facility], who agreed to accept the patient for further management. The patient has been transferred in stable condition. Physical examination Awake , alert, and oriented x4 HEENT: Atraumatic, normocephalic, EOMI, anicteric sclera ; pink conjunctiva Neck: Trachea midline. Supple, full range of motion, no JVD Cardiac: Regular rhythm, regular rate with no murmurs all over the precordium. Respiratory: Equal breath sounds bilaterally, no tachypnea, no wheezing ,rub or rales, Chest wall is symmetric and without deformity. Gastrointestinal: Abdomen symmetric, non-distended, soft, mild tenderness on palpation is present, normal bowel sounds x4 quadrant, normoactive, no hepatosplenomegaly Musculoskeletal: No pedal edema -reducible inguinal hernia present on examination Neurological: Mental status exam: alert and consciousness, orientation x3, memory, speech - Cranial nerve test: Cranial nerves 2-12 are intact - Motor system: Bulk normal in bilateral upper and lower extremity Tone-bilateral upper extremity normal and decreased in bilateral lower extremity no rigidity Strength-upper extremity bilateral 5/5-no pronator drift Lower extremity-right 1/5 and left 0/5 Reflexes-upper extremity bilateral 2+: Biceps, triceps, brachioradialis Lower extremity-knee and [id number] Babinski sign-absence - Sensory system: Upper extremity bilateral normal, lower extremity bilateral pain, touch, pressure-normal Abdomen-decreased sensation to pain and touch in T11 dermatome - Cerebellar: Normal finger-nose test, no dysdiadochokinesia Gait-could not elicited Skin: Warm and dry Extremities : No Edema, peripheral pulses felt, No deformities Psychiatric:Appropriate mood and affect,No hallucinations or suicidal ideation Vital Signs Date Time Temp Pulse Resp B/P (MAP) Pulse Ox O2 Delivery O2 Flow Rate FiO2 09/17/25 18:30 90 09/17/25 18:00 97.7 16 172/100 (124) 100 Room Air 09/16/25 14:15 1.0 Laboratory Tests Test 09/16/25 01:06 09/16/25 19:46 09/16/25 22:28 09/17/25 05:02 White Blood Count 5.8 X10'3 4.2 X10'3 Red Blood Count 5.54 X10'6 5.46 X10'6 Hemoglobin 13.9 g/dl 13.4 g/dl Hematocrit 42.1 % 42.1 % Mean Corpuscular Volume 76.1 FL 77.0 FL Mean Corpuscular Hemoglobin 25.0 PG 24.5 PG Mean Corpuscular Hemoglobin Concent 32.9 g/dL 31.8 g/dL Red Cell Distribution Width 14.4 % 14.1 % Platelet Count 298 X10'3 281 X10'3 Mean Platelet Volume 6.8 FL 7.4 FL Neutrophils (%) (Auto) 63.0 % 57.4 % Lymphocytes (%) (Auto) 19.2 % 20.3 % Monocytes (%) (Auto) 13.9 % 16.6 % Eosinophils (%) (Auto) 2.6 % 3.9 % Basophils (%) (Auto) 1.3 % 1.8 % Neutrophils # (Auto) 3.7 X10'3 2.4 X10'3 Lymphocytes # (Auto) 1.1 X10'3 0.9 X10'3 Monocytes # (Auto) 0.8 X10'3 0.7 X10'3 Eosinophils # (Auto) 0.2 X10'3 0.2 X10'3 Basophils # (Auto) 0.1 X10'3 0.1 X10'3 CBC Comment Erythrocyte Sedimentation Rate 10 MM/HR Prothrombin Time 10.7 SECONDS INR International Normalized Ratio 1.0 INR Activated Partial Thromboplast Time 25 SECONDS Coagulation Comments Sodium Level 133 MMOL/L 135 MMOL/L Potassium Level 4.4 MMOL/L 4.9 MMOL/L Chloride Level 98 MMOL/L 98 MMOL/L Carbon Dioxide Level 29.9 MMOL/L 33.7 MMOL/L Anion Gap 5 3 Blood Urea Nitrogen 29 MG/DL 29 MG/DL Creatinine 1.03 MG/DL 1.07 MG/DL Estimated GFR/1.73 m2 75 ML/MIN 71 ML/MIN BUN/Creatinine Ratio 28.2 27.1 Glucose Level 99 MG/DL 86 MG/DL Lactic Acid Level 0.9 MMOL/L Calcium Level 8.9 MG/DL 9.0 MG/DL Magnesium Level 2.5 MG/DL Total Bilirubin 0.4 MG/DL 0.4 MG/DL Aspartate Amino Transf (AST/SGOT) 23 U/L 23 U/L Alanine Aminotransferase (ALT/SGPT) 18 U/L 21 U/L Alkaline Phosphatase 92 IU/L 82 IU/L C-Reactive Protein 0.35 MG/DL Total Protein 8.3 G/DL 7.4 G/DL Albumin 3.7 G/DL 3.2 G/DL Globulin 4.6 G/DL 4.2 G/DL Albumin/Globulin Ratio 0.8 0.8 Procalcitonin < 0.05 NG/ML Thyroid Stimulating Hormone (TSH) 1.36 ulU/ml Chemistry Comments Urine Specimen Description Cln catch midstream Urine Color Yellow Urine Clarity Clear Urine pH 7.0 Urine Specific [place] 1.010 Urine Protein 30 mg/dl Urine Glucose (UA) Negative mg/dl Urine Ketones Negative mg/dl Urine Occult Blood Negative Urine Nitrite Negative Urine Bilirubin Negative Urine Urobilinogen 0.2 E.U/dL Urine Leukocyte Esterase Negative Urine RBC None seen /HPF Urine WBC None seen /HPF Urine Squamous Epithelial Cells None seen /LPF Urine Bacteria None seen /HPF Urine Culture Indicated Not ind Volume Urine Centrifuged 10 ml Urine Comment Urine Opiates Screen Positive Urine Methadone Screen Negative Urine Fentanyl Screen Negative Urine Barbiturates Screen Negative Urine Phencyclidine Screen Negative Urine Amphetamines Screen Positive Urine Benzodiazepines Screen Negative Urine Cocaine Screen Negative Urine Cannabinoids Screen Negative Drug Screen Comment Basophilic Stippling Test 09/17/25 06:[address] cervical spine-No definite CT evidence of acute fracture or dislocation of the bony cervical spine. Degenerative change of the cervical spine. CT thoracic spine-No definite CT evidence of acute fracture or dislocation of the bony thoracic spine. Degenerative change of the thoracic spine. Abdomen/pelvic CT-. Marked urinary bladder distention. Head CT-No evidence of acute intracranial abnormality. MRI of the cervical spine without contrast-Degenerative disc disease and facet/ uncinate disease in the cervical spine with associated spinal canal, subarticular, and neural foraminal stenoses as detailed above. Congenital spinal canal narrowing contributes to the spinal canal stenoses. Straightening of the normal cervical lordosis. No significant spondylolisthesis. No signal abnormality in the spinal cord to suggest myelopathy. Thoracic spine MRI without contrast-Normal MRI of the Thoracic Spine. Lumbar spine MRI without contrast-Mild diffuse annular bulges of the L2-3, L3-4 and L4-5 discs without significant narrowing of the central canal or evidence of nerve root compression Cervical spine MRI with contrast-Minimal enhancement adjacent to the distal aspects of the C7 and T1 spinous processes, may be due to nonspecific inflammation or mild supraspinous ligament sprains in the appropriate clinical setting. Thoracic spine MRI with contrast-No abnormal enhancement identified. Discharge instruction Continue home med trimethoprim sulfamethoxazole,Genvoya *Problems/Diagnosis: (1) Right leg weakness Status: Acute (2) Left leg weakness Status: Acute Total Time Spent on D/C: Up to 30 Minutes Date of Service: Sep 17, 2025 Billing Provider: JOSH MORA MD Common Visit Codes: 44152-DNO/OBS DISCH DAY >30min ROMA CERDA, RES Sep 17, 2025 20:07 JOSH MORA MD Sep 18, 2025 06:59
[2025-09-17 22:06] VITALS: BP 134/90; PULSE 88; RESP 18; TEMP 97.8; O2SAT 98
[2025-09-17] MEDS: ondansetron/PF 4mg/2ml inj IV PRN (23:20)
[2025-09-18 06:00] VITALS: BP 160/104; PULSE 96; RESP 17; TEMP 97.8; O2SAT 96
[2025-09-18 06:17] LABS: MEAN PLATELET VOLUME 7.3 FL (7.4-10.4); RED CELL DISTRIBUTION WIDTH 14.2 % (11.5-14.5)
[2025-09-18 06:26] LABS: CREATININE 0.92 MG/DL (0.60-1.10); TOTAL CARBON DIOXIDE 30.9 MMOL/L (24-32); eCRCL 90 ML/MIN; eGFR 85 ML/MIN
[2025-09-18 08:00] VITALS: BP 119/78; PULSE 99; RESP 16; O2SAT 96; O2SAT 99
[2025-09-18] MEDS: [UNRECOGNIZED DRUG - OTHER] PO SCH (08:00)
[2025-09-18 10:00] VITALS: BP 164/94; PULSE 91; RESP 12; TEMP 98.3; O2SAT 98
--- NOTE | 2025-09-18 13:41 | RADIOLOGY REPORT ---
EXAM: CT CT L SPINE RECONSTRUCTIION HISTORY: progressive LE weakness x2 weeks, mass COMPARISON: MRI of the lumbar spine dated 09/16/2025. TECHNIQUE: Noncontrast axial CT images of the lumbar spine were performed. Sagittal and coronal reformatted images were obtained. This CT exam was performed using one or more of the following dose reduction techniques: Automated exposure control, adjustment of the mA and/or kv according to patient size, or the use of iterative reconstruction techniques. Radiation Dose: CT Dose: CTDI volume is 26.91 mGy. Dose-length product is 1455.95 mGy*cm FINDINGS: No fracture or listhesis are identified about the lumbar spine. No significant degenerative changes. No significant spinal canal stenosis or neural foraminal stenosis are identified at any level in the lumbar spine. IMPRESSION: 1. No fracture of the lumbar spine. 2. [id number] Lumbar degenerative disc disease without high-grade spinal canal stenosis at any level in the lumbar spine. 3. Significant neural foraminal stenosis on the left at L5-S1. These findings may correspond to left lower extremity radicular symptoms in the L5 nerve root distribution. 4. Lumbosacral transitional vertebrae. 5. Residual iodinated contrast in the urinary bladder and left renal collecting system and ureter. There is suspected luminal narrowing of the left distal ureter or ureterovesical junction, as there is moderate left hydronephrosis and hydroureter without visualization of obstructing calculi. 6. Mild prostatic enlargement. 7. Bilateral fatty inguinal indirect hernias, larger on the right.
[2025-09-18] MEDS ORDERED: LIDOcaine 1% (10mg/ml)w/preservative inj. 20ml MDV ONE (16:23)
[2025-09-18 18:29] VITALS: BP 107/81; PULSE 74; RESP 14; TEMP 97.9; O2SAT 96
--- NOTE | 2025-09-18 19:29 | PROGRESS NOTE- Residence ---
Progress Note - Resident Providers to CC Resident Creating Document: JEFFREY EASLEY RES ~ Antibiotic Timeout Antibiotic Ordered?: No Subjective Patient was seen and examined at the bedside today. Reports that the weakness in his right lower extremity is progressing. Consulted Dr. Agudelo for lumbar puncture, LP was unsuccessful. We will try with IR tomorrow. Pending transfer to [facility]. Objective Vital Signs Date Time Temp Pulse Resp B/P (MAP) Pulse Ox O2 Delivery O2 Flow Rate FiO2 09/18/25 18:29 97.9 74 14 107/81 (90) 96 Room Air 09/18/25 10:00 1.0 Result Diagram: 09/18/25 0533 09/18/25 0533 Awake , alert, and oriented x4 HEENT: Atraumatic, normocephalic, EOMI, anicteric sclera ; pink conjunctiva Neck: Trachea midline. Supple, full range of motion, no JVD Cardiac: Regular rhythm, regular rate with no murmurs all over the precordium. Respiratory: Equal breath sounds bilaterally, no tachypnea, no wheezing ,rub or rales, Chest wall is symmetric and without deformity. Gastrointestinal: Abdomen symmetric, non-distended, soft, mild tenderness on palpation is present, normal bowel sounds x4 quadrant, normoactive, no hepatosplenomegaly Musculoskeletal: No pedal edema -reducible inguinal hernia present on examination Neurological: Mental status exam: alert and consciousness, orientation x3, memory, speech - Cranial nerve test: Cranial nerves 2-12 are intact - Motor system: Bulk normal in bilateral upper and lower extremity Tone-bilateral upper extremity normal and decreased in bilateral lower extremity no rigidity Strength-upper extremity bilateral 5/5-no pronator drift Lower extremity-right 1/5 and left 0/5 Reflexes-upper extremity bilateral 2+: Biceps, triceps, brachioradialis Lower extremity-knee and [id number]-9 Babinski sign-absence - Sensory system: Upper extremity bilateral normal, lower extremity bilateral pain, touch, pressure-normal Abdomen-decreased sensation to pain and touch in T11 dermatome - Cerebellar: Normal finger-nose test, no dysdiadochokinesia Gait-could not elicited Skin: Warm and dry Extremities : No Edema, peripheral pulses felt, No deformities Psychiatric:Appropriate mood and affect,No hallucinations or suicidal ideation Coagulation Studies Laboratory Tests Test 09/16/25 01:06 Prothrombin Time 10.7 SECONDS (9.0-12.0) INR International Normalized Ratio 1.0 INR Activated Partial Thromboplast Time 25 SECONDS (22-32) Coagulation Comments Assessment Assessment Acute Sudden onset bilateral lower extremity paralysis, cause and evaluation Differentials-viral, B12 deficiency TSH-1.36, procalcitonin 0.05, ESR 10 In ED- Cervical spine, thoracic spine CT-shows degenerative changes but no evidence of fracture Abdomen/pelvis CT shows marked urinary retention Head CT ruled out bleeding Cervical spine MRI-degenerative changes, thoracic spine MRI-normal MRI of the lumbar spine- Mild diffuse annular bulges of the L2-3, L3-4 and L4-5 discs without significant narrowing of the central canal or evidence of nerve root compression MRI of the cervical spine with contrast-Minimal enhancement adjacent to the distal aspects of the C7 and T1 spinous processes, may be due to nonspecific inflammation or mild supraspinous ligament sprains in the appropriate clinical setting. MRI of the thoracic spine with contrast-. No abnormal enhancement identified. Tele neurology recommended lumbar puncture and PT Lumbar puncture initially tried by Dr. Rodrigues, also tried by Dr. Agudelo, was unsuccessful, we will try with IR tomorrow. Pending transferred to [facility] for further neurological evaluation. 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
[2025-09-18 22:00] VITALS: BP 123/89; PULSE 97; RESP 16; TEMP 97.4; O2SAT 100
[2025-09-19] VITALS (14 sets, daily range): BP systolic 133–155; BP diastolic 89–100; PULSE 84–95; RESP 12–17; TEMP 97.2–98.4; O2SAT 92–100
[2025-09-19 05:21] LABS: MEAN PLATELET VOLUME 7.1 FL (7.4-10.4); RED CELL DISTRIBUTION WIDTH 14.4 % (11.5-14.5)
[2025-09-19 05:39] LABS: CREATININE 0.98 MG/DL (0.60-1.10); TOTAL CARBON DIOXIDE 31.7 MMOL/L (24-32); eCRCL 84 ML/MIN; eGFR 79 ML/MIN
--- NOTE | 2025-09-19 12:00 | PROGRESS NOTE ---
Progress Note - Angio Providers to CC ~ Angio Progress Note: Meticulous fluroscopic guidance attempt at LP multiple levels revealed only scant blood upon expected posterior dural sac location. This can be seen with epidural blood. If due to any prior trauma, recommend pause of 1-2 weeks to allow the epidural blood to resorb and not displace the thecal sac and csf. Further attempts would be high risk and contribute to any epidural blood. D/W patient. No immediate complications. AGUSTIN BOYLE MD Sep 19, 2025 12:00
--- NOTE | 2025-09-19 13:44 | PROGRESS NOTE- Residence ---
Progress Note - Resident Providers to CC Resident Creating Document: RIGOBERTO CERDA, RES ~ Antibiotic Timeout Antibiotic Ordered?: No Subjective Patient was seen and examined at the bedside today. No overnight symptoms reported and patient endorses worsening of his right lower extremity weakness in addition to constipation. today patient underwent lumbar puncture with . Per Dr Muhammad-Under fluoroscopic guidance, multiple attempts at lumbar puncture were made at different levels; however, only scant blood was encountered at the expected posterior dural sac location, suggesting possible epidural blood rather than CSF. This finding can occur due to prior trauma or previous attempts. Further attempts were deemed high risk as they could increase epidural blood and displace the thecal sac and CSF. Recommendation is to pause for 12 weeks to allow resorption before reattempting. Discussed with patient; no immediate complications noted. Pending transfer to [facility] Objective Vital Signs Date Time Temp Pulse Resp B/P (MAP) Pulse Ox O2 Delivery O2 Flow Rate FiO2 09/19/25 10:00 97.2 92 14 155/95 (115) 99 Room Air 0.0 Result Diagram: 09/19/25 0500 09/19/25 0500 Awake , alert, and oriented x4 HEENT: Atraumatic, normocephalic, EOMI, anicteric sclera ; pink conjunctiva Neck: Trachea midline. Supple, full range of motion, no JVD Cardiac: Regular rhythm, regular rate with no murmurs all over the precordium. Respiratory: Equal breath sounds bilaterally, no tachypnea, no wheezing ,rub or rales, Chest wall is symmetric and without deformity. Gastrointestinal: Abdomen symmetric, non-distended, soft, mild tenderness on palpation is present, normal bowel sounds x4 quadrant, normoactive, no hepatosplenomegaly Musculoskeletal: No pedal edema -reducible inguinal hernia present on examination Neurological: Mental status exam: alert and consciousness, orientation x3, memory, speech - Cranial nerve test: Cranial nerves 2-12 are intact - Motor system: Bulk normal in bilateral upper and lower extremity Tone-bilateral upper extremity normal and decreased in bilateral lower extremity no rigidity Strength-upper extremity bilateral 5/5-no pronator drift Lower extremity-right 0/5 and left 0/5 Reflexes-upper extremity bilateral 2+: Biceps, triceps, brachioradialis Lower extremity-knee and [id number]-2 Babinski sign-absence - Sensory system: Upper extremity bilateral normal, lower extremity bilateral pain, touch, pressure-normal Abdomen-decreased sensation to pain and touch in T11 dermatome - Cerebellar: Normal finger-nose test, no dysdiadochokinesia Gait-could not elicited Skin: Warm and dry Extremities : No Edema, peripheral pulses felt, No deformities Psychiatric:Appropriate mood and affect,No hallucinations or suicidal ideation Coagulation Studies Laboratory Tests Test 09/16/25 01:06 Prothrombin Time 10.7 SECONDS (9.0-12.0) INR International Normalized Ratio 1.0 INR Activated Partial Thromboplast Time 25 SECONDS (22-32) Coagulation Comments Advance Care Planning Advanced Care plannin - 30 Minutes Assessment Assessment Acute Sudden onset bilateral lower extremity paralysis, cause and evaluation Differentials Guillain-[place] syndrome,viral, B12 deficiency TSH-1.36, procalcitonin 0.05, ESR 10 In ED- Cervical spine, thoracic spine CT-shows degenerative changes but no evidence of fracture Abdomen/pelvis CT shows marked urinary retention Head CT ruled out bleeding Cervical spine MRI-degenerative changes, thoracic spine MRI-normal MRI of the lumbar spine- Mild diffuse annular bulges of the L2-3, L3-4 and L4-5 discs without significant narrowing of the central canal or evidence of nerve root compression MRI of the cervical spine with contrast-Minimal enhancement adjacent to the distal aspects of the C7 and T1 spinous processes, may be due to nonspecific inflammation or mild supraspinous ligament sprains in the appropriate clinical setting. MRI of the thoracic spine with contrast-. No abnormal enhancement identified. Tele neurology recommended lumbar puncture and PT Patient underwent lumbar puncture by Dr. Muhammad-Follow up with CSF analysis Started IVIG 0.4g/kg/day for 5 days Pending transferred to [facility] for further neurological evaluation. 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
[2025-09-19] MEDS: IMMUNE GLOBULIN IV SCH (14:04)
[2025-09-19] MEDS: PIGGYBACK IV SCH (14:04)
[2025-09-19] MEDS: magnesium hydroxide 30ml (MOM) UD suspension PO ONE (14:14)
[2025-09-19 15:23] LABS: % CD 4 POS. LYMPH 15.4 % (30.8-58.5); % IMMATURE GRANULOCYTES 0 % (Not Estab.); ABSOLUTE CD 4 HELPER 139 /uL (359-1519); BASO (ABSOLUTE) 0.1 x10E3/uL (0.0-0.2); BASOS 1 % (Not Estab.); EOS 4 % (Not Estab.); EOS (ABSOLUTE) 0.2 x10E3/uL (0.0-0.4); IMMATURE GRANULOCYTES(ABSOLUTE 0.0 x10E3/uL (0.0-0.1); LYMPHS 19 % (Not Estab.); LYMPHS (ABSOLUTE) 0.9 x10E3/uL (0.7-3.1); MCH 24.8 pg (26.6-33.0); MCHC 30.2 g/dL (31.5-35.7); MCV 82 fL (79-97); MONOCYTES 15 % (Not Estab.); MONOCYTES (ABSOLUTE) 0.7 x10E3/uL (0.1-0.9); NEUTROPHILS 61 % (Not Estab.); NEUTROPHILS (ABSOLUTE) 2.8 x10E3/uL (1.4-7.0); PLATELETS 299 x10E3/uL (150-450); RBC 5.45 x10E6/uL (4.14-5.80); RDW 14.2 % (11.6-15.4); WBC 4.5 x10E3/uL (3.4-10.8)
--- NOTE | 2025-09-19 18:51 | RADIOLOGY REPORT ---
Attempted lumbar puncture by fluoroscopic guidance Date: September 19, 2025. History: HIV-positive patient with a lateral lower extremity neurologic changes including paresthesias. Apparently 2 unsuccessful lumbar puncture is attempts within the last several days. Procedure: 1. Fluoroscopically guided attempted lumbar puncture at L2-3, L3-4 and L4-5 levels. Estimated blood loss: None from procedure Complication: None immediate Medication: Lidocaine 1% subcutaneous total of approximately 8 cc divided amongst at 3 levels Fluoroscopy time: 43 seconds, dose 11.49 mGy. Findings/technique: Written informed consent was obtained from the patient following a thorough discussion of the risks, alternatives, and benefits of the procedure. All questions were answered appropriately and thoroughly. The patient was placed in the prone position on the fluoroscopy table. The lower back was prepped and draped in standard sterile fashion using maximum sterile barrier technique. A timeout was performed prior to preprocedure. Lidocaine 1% was infiltrated into the skin and soft tissues overlying the initially the L4-5 level followed by L3-4 and subsequently L2-3 levels. A 20-gauge needle was then initially advanced under fluoroscopic guidance to the expected location of the thecal sac at the L4-5 level. At expected location of the thecal sac a scant amount of blood was noted. A smaller 22-gauge needle was therefore used for the attempted access that L3-4 followed by L2-3. All accesses were met without success with scant amount of blood noted upon entry at expected location of the thecal sac based upon AP and lateral imaging. This suggests possibility of fluid in the epidural space such as hematoma from previous trauma?. Impression: There is no evidence of CSF within the thecal sac at the L2-3 through L4-5 levels. However upon entry at the expected location of the thecal sac there is a scant amount of blood demonstrated. It is possible from trauma that the patient has a small amount of blood throughout the thecal sac extrinsically narrowing the overall free CSF within the thecal sac at this time. Suggest waiting 1-2 weeks for any of this presumed epidural blood, if truly present to resolve.
[2025-09-20 06:00] VITALS: BP 138/92; PULSE 94; RESP 11; TEMP 97.6; O2SAT 100
[2025-09-20 06:13] LABS: MEAN PLATELET VOLUME 7.1 FL (7.4-10.4); RED CELL DISTRIBUTION WIDTH 14.1 % (11.5-14.5)
[2025-09-20 06:39] LABS: CREATININE 0.90 MG/DL (0.60-1.10); TOTAL CARBON DIOXIDE 26.7 MMOL/L (24-32); eCRCL 92 ML/MIN; eGFR 87 ML/MIN
[2025-09-20 10:00] VITALS: BP 140/92; PULSE 87; RESP 16; TEMP 97.6; O2SAT 99
[2025-09-20] MEDS: magnesium hydroxide 30ml (MOM) UD suspension PO PRN (15:10)
[2025-09-20 18:00] VITALS: PULSE 87; RESP 18; TEMP 97.7; O2SAT 100
--- NOTE | 2025-09-20 18:16 | PROGRESS NOTE- Residence ---
Progress Note - Resident Providers to CC Resident Creating Document: RIGOBERTO CERDA RES ~ Antibiotic Timeout Antibiotic Ordered?: No Subjective Patient was seen and examined at the bedside today. No overnight symptoms reported and Pending transfer to [facility] Objective Vital Signs Date Time Temp Pulse Resp B/P (MAP) Pulse Ox O2 Delivery O2 Flow Rate FiO2 09/20/25 10:00 97.6 87 16 140/92 (108) 99 Room Air 09/20/25 07:55 0.0 Result Diagram: 09/20/25 0536 09/20/25 0536 Awake , alert, and oriented x4 HEENT: Atraumatic, normocephalic, EOMI, anicteric sclera ; pink conjunctiva Neck: Trachea midline. Supple, full range of motion, no JVD Cardiac: Regular rhythm, regular rate with no murmurs all over the precordium. Respiratory: Equal breath sounds bilaterally, no tachypnea, no wheezing ,rub or rales, Chest wall is symmetric and without deformity. Gastrointestinal: Abdomen symmetric, non-distended, soft, mild tenderness on palpation is present, normal bowel sounds x4 quadrant, normoactive, no hepatosplenomegaly Musculoskeletal: No pedal edema -reducible inguinal hernia present on examination Neurological: Mental status exam: alert and consciousness, orientation x3, memory, speech - Cranial nerve test: Cranial nerves 2-12 are intact - Motor system: Bulk normal in bilateral upper and lower extremity Tone-bilateral upper extremity normal and decreased in bilateral lower extremity no rigidity Strength-upper extremity bilateral 5/5-no pronator drift Lower extremity-right 0/5 and left 0/5 Reflexes-upper extremity bilateral 2+: Biceps, triceps, brachioradialis Lower extremity-knee and [id number]-[id number]-4 Babinski sign-absence - Sensory system: Upper extremity bilateral normal, lower extremity bilateral pain, touch, pressure-normal Abdomen-decreased sensation to pain and touch in T11 dermatome - Cerebellar: Normal finger-nose test, no dysdiadochokinesia Gait-could not elicited Skin: Warm and dry Extremities : No Edema, peripheral pulses felt, No deformities Psychiatric:Appropriate mood and affect,No hallucinations or suicidal ideation Coagulation Studies Laboratory Tests Test 09/16/25 01:06 Prothrombin Time 10.7 SECONDS (9.0-12.0) INR International Normalized Ratio 1.0 INR Activated Partial Thromboplast Time 25 SECONDS (22-32) Coagulation Comments Advance Care Planning Advanced Care plannin - 30 Minutes Assessment Assessment Acute Sudden onset bilateral lower extremity paralysis, cause and evaluation Differentials Guillain-[place] syndrome,viral, B12 deficiency TSH-1.36, procalcitonin 0.05, ESR 10 In ED- Cervical spine, thoracic spine CT-shows degenerative changes but no evidence of fracture Abdomen/pelvis CT shows marked urinary retention Head CT ruled out bleeding Cervical spine MRI-degenerative changes, thoracic spine MRI-normal MRI of the lumbar spine- Mild diffuse annular bulges of the L2-3, L3-4 and L4-5 discs without significant narrowing of the central canal or evidence of nerve root compression MRI of the cervical spine with contrast-Minimal enhancement adjacent to the distal aspects of the C7 and T1 spinous processes, may be due to nonspecific inflammation or mild supraspinous ligament sprains in the appropriate clinical setting. MRI of the thoracic spine with contrast-. No abnormal enhancement identified. Tele neurology recommended lumbar puncture and PT Patient underwent lumbar puncture by Dr. Muhammad-Follow up with CSF analysis Continue IVIG 0.4g/kg/day for 2/5 days Pending transferred to [facility] for further neurological evaluation, case resource manager are working placement Tele neurology was consulted for follow up Follow up with MRI spine with and without contrast Coronary artery disease status post stent placement in 2022 Patient denies taking any medication at home History of HIV Continue home med Continue trimethoprim sulfamethoxazole for prophylaxis Most recent viral load according to the patient was undetectable Hyponatremia Continue normal saline 75 cc/hour 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
[2025-09-20 22:00] VITALS: BP 136/104; PULSE 95; RESP 12; TEMP 98.1; O2SAT 99
[2025-09-20] MEDS: nicotine 7mg patch - 24hr TD ONE (22:04)
[2025-09-21 06:00] VITALS: BP 132/87; PULSE 89; RESP 16; TEMP 98.2; O2SAT 97
[2025-09-21 06:31] LABS: MEAN PLATELET VOLUME 6.9 FL (7.4-10.4); RED CELL DISTRIBUTION WIDTH 13.9 % (11.5-14.5)
[2025-09-21 06:41] LABS: CREATININE 0.92 MG/DL (0.60-1.10); TOTAL CARBON DIOXIDE 27.1 MMOL/L (24-32); eCRCL 90 ML/MIN; eGFR 85 ML/MIN
[2025-09-21 07:05] LABS: EOSINOPHILS % (MANUAL) 11.0 % (0-6); LYMPHOCYTES % (MANUAL) 15.0 % (21-51); NEUTROPHILS % (MANUAL) 55.0 % (42-75)
[2025-09-21 07:06] LABS: MONOCYTES % (MANUAL) 19.0 % (2-12); PLATELET ESTIMATE NORMAL
[2025-09-21] MEDS ORDERED: magnesium hydroxide 30ml (MOM) UD suspension PO ONE (08:35)
[2025-09-21] MEDS: bisacodyl 10mg suppository rectal RC STA (09:26)
[2025-09-21] MEDS: HYDROmorphone inj. 0.5 MG/0.5 ML DISP.SYRIN IV PRN (09:27)
[2025-09-21 10:00] VITALS: BP 127/80; PULSE 85; RESP 14; TEMP 98.1; O2SAT 97
[2025-09-21] MEDS: lactulose 20gm/30ml cup PO ONE (16:39)
[2025-09-21 18:00] VITALS: BP 117/75; PULSE 86; RESP 16; TEMP 97.8; O2SAT 98
--- NOTE | 2025-09-21 19:54 | PROGRESS NOTE- Residence ---
Progress Note - Resident Providers to CC Resident Creating Document: RIGOBERTO DIETRICH RES ~ Antibiotic Timeout Antibiotic Ordered?: No Subjective Patient was seen and examined at the bedside today. No overnight symptoms reported. Reported constipation given a dose of lactulose Consulted neurosurgeon Dr. Vallejo today Pending transfer to [facility] Objective Vital Signs Date Time Temp Pulse Resp B/P (MAP) Pulse Ox O2 Delivery O2 Flow Rate FiO2 09/21/25 10:00 98.1 85 14 127/80 (96) 97 Room Air 09/20/25 20:00 0.0 Result Diagram: 09/21/25 0559 09/21/25 0559 Awake , alert, and oriented x4 HEENT: Atraumatic, normocephalic, EOMI, anicteric sclera ; pink conjunctiva Neck: Trachea midline. Supple, full range of motion, no JVD Cardiac: Regular rhythm, regular rate with no murmurs all over the precordium. Respiratory: Equal breath sounds bilaterally, no tachypnea, no wheezing ,rub or rales, Chest wall is symmetric and without deformity. Gastrointestinal: Abdomen symmetric, non-distended, soft, mild tenderness on palpation is present, normal bowel sounds x4 quadrant, normoactive, no hepatosplenomegaly Musculoskeletal: No pedal edema -reducible inguinal hernia present on examination Neurological: Mental status exam: alert and consciousness, orientation x3, memory, speech - Cranial nerve test: Cranial nerves 2-12 are intact - Motor system: Bulk normal in bilateral upper and lower extremity Tone-bilateral upper extremity normal and decreased in bilateral lower extremity no rigidity Strength-upper extremity bilateral 5/5-no pronator drift Lower extremity-right 0/5 and left 0/5 Reflexes-upper extremity bilateral 2+: Biceps, triceps, brachioradialis Lower extremity-knee and [id number]-[id number]-7 Babinski sign-absence - Sensory system: Upper extremity bilateral normal, lower extremity bilateral pain, touch, pressure-normal Abdomen-decreased sensation to pain and touch in T11 dermatome - Cerebellar: Normal finger-nose test, no dysdiadochokinesia Gait-could not elicited Skin: Warm and dry Extremities : No Edema, peripheral pulses felt, No deformities Psychiatric:Appropriate mood and affect,No hallucinations or suicidal ideation Coagulation Studies Laboratory Tests Test 09/16/25 01:06 Prothrombin Time 10.7 SECONDS (9.0-12.0) INR International Normalized Ratio 1.0 INR Activated Partial Thromboplast Time 25 SECONDS (22-32) Coagulation Comments Advance Care Planning Advanced Care plannin - 30 Minutes Assessment Assessment Acute Sudden onset bilateral lower extremity paralysis, cause and evaluation Possible epidural hematoma TSH-1.36, procalcitonin 0.05, ESR 10 In ED- Cervical spine, thoracic spine CT-shows degenerative changes but no evidence of fracture Abdomen/pelvis CT shows marked urinary retention Head CT ruled out bleeding Cervical spine MRI-degenerative changes, thoracic spine MRI-normal MRI of the lumbar spine- Mild diffuse annular bulges of the L2-3, L3-4 and L4-5 discs without significant narrowing of the central canal or evidence of nerve root compression MRI of the cervical spine with contrast-Minimal enhancement adjacent to the distal aspects of the C7 and T1 spinous processes, may be due to nonspecific inflammation or mild supraspinous ligament sprains in the appropriate clinical setting. MRI of the thoracic spine with contrast-. No abnormal enhancement identified. Tele neurology recommended lumbar puncture and PT Patient underwent lumbar puncture by Dr. Muhammad-Follow up with CSF analysis Continue IVIG 0.4g/kg/day for 3/5 days Pending transferred to [facility] for further neurological evaluation, pillowcase cutter are working placement Consulted neurosurgeon Dr. 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
[2025-09-21] MEDS: magnesium hydroxide 30ml (MOM) UD suspension PO SCH (21:10)
[2025-09-21 22:00] VITALS: BP 108/71; PULSE 90; RESP 16; TEMP 99; O2SAT 99
[2025-09-22] VITALS (7 sets, daily range): BP systolic 104–139; BP diastolic 62–83; PULSE 76–87; RESP 16–18; TEMP 97.6–98.9; O2SAT 92–98
--- NOTE | 2025-09-22 08:26 | RADIOLOGY REPORT ---
CLINICAL INFORMATION: New facial paralysis. TECHNIQUE: Axial imaging was obtained through the brain without contrast. Coronal and sagittal reformatted images were obtained, reviewed, and stored. Images were reviewed in brain and bone windows. All CT scans at this medical facility are performed using dose modulation techniques as appropriate to a performed exam including the following: Automated exposure control was utilized; adjustment of the MA and/or KV according to patient size; and use of iterative reconstruction technique. CTDIvol = 57.25 mGy DLP = 1020.36 mGy-cm COMPARISON: CT CT HEAD on DOS: 09/16/25 FINDINGS: There is no acute intracranial hemorrhage. No mass midline shift. Questionable ovoid structure near the right cerebellopontine angle measuring up to 1.5 cm ( series 2, image 6), possibly artifact. The ventricles and sulci are within normal limits in size for age. Basal cisterns are patent. The calvarium is unremarkable. Paranasal sinuses and mastoid air cells are clear. IMPRESSION: 1. No CT evidence of acute intracranial hemorrhage. 2. Questionable ovoid structure near the right cerebellopontine angle. Correlate with clinical findings. MRI without and with contrast could be considered to further characterize if clinically indicated and exclude mass.
[2025-09-22 08:49] LABS: MEAN PLATELET VOLUME 6.9 FL (7.4-10.4); RED CELL DISTRIBUTION WIDTH 14.3 % (11.5-14.5)
[2025-09-22 09:09] LABS: CREATININE 0.83 MG/DL (0.60-1.10); TOTAL CARBON DIOXIDE 27.5 MMOL/L (24-32); eCRCL 99 ML/MIN; eGFR > 90 ML/MIN
--- NOTE | 2025-09-22 13:10 | DISCHARGE SUMMARY-Residence ---
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 Lilia Muhammad Complications: None Condition on DC: Stable for transfer Discharge Summary: History of present illness The patient is a 55-year-old male with a history of HIV (on Genvoya since 1995) and coronary artery disease status post stent placement (not currently on medications) who presents with a two-week history of progressive neurologic symptoms. His symptoms began with a band-like numbness in the upper abdomen that spread to involve the entire abdomen within a few days, followed by saddle anesthesia and acute urinary retention. Over the past three days, he developed bilateral lower extremity weakness and numbness, now severe enough that he is unable to ambulate. He also reports right groin pain and intermittent abdominal discomfort related to a known right inguinal hernia without erythema or redness. Associated symptoms include nausea, mild headache, and anxiety. He denies rash, recent wounds, surgery, new medications, insect bites, chemical exposure, or rec ent hiking. He reports eating a lot of canned foods and states he has never experienced a similar episode before. Hospital course This is a 55-year-old male with a history of abdominal pain related to a groin hernia who presented to the ED with sudden onset of left lower extremity weakness, making it difficult for him to walk. The symptoms began two weeks ago with loss of sensation around the T11 region of the abdomen, which later progressed to the left lower extremity and has been slowly worsening, now involving the right lower extremity as well. His upper extremities are normal, and there are no bulbar symptoms. In the ED, imaging and blood work were performed and did not reveal any significant findings. Tele neurology was consulted and recommended lumbar puncture with [facility] CSF panel, A lumbar puncture was initially planned but it was unsuccessful. On the following day the patient reports worsening weakness in the right lower extremity. 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 We consulted neurosurgeon Dr. Vallejo in view of epidural hematoma and we ordered MRI of lumbar spine with and without contrast , today the patient condition he has progressively worse an d patient report new symptoms which includes unable to close right eye and rt- sided numbness of the face along with double vision. In addition patient also developed difficulty swallowing in view of worsening of the patient condition it would be beneficial for the patient to get treatment at higher level center. Patient Negative Inspiratory pressure is -60. Hence we are transferring the patient to [facility] Physical examination Awake , alert, and oriented x4 HEENT: Pinpoint pupils, Atraumatic, normocephalic, EOMI, anicteric sclera ; pink conjunctiva Neck: Trachea midline. Supple, full range of motion, no JVD Cardiac: Regular rhythm, regular rate with no murmurs all over the precordium. Respiratory: Equal breath sounds bilaterally, no tachypnea, no wheezing ,rub or rales, Chest wall is symmetric and without deformity. Gastrointestinal: Abdomen symmetric, non-distended, soft, mild tenderness on palpation is present, normal bowel sounds x4 quadrant, normoactive, no hepatosplenomegaly Musculoskeletal: No pedal edema -reducible inguinal hernia present on examination Neurological: Mental status exam: alert and consciousness, orientation x3, memory, speech - Cranial nerve test: Cranial nerves 2-12 are intact except for the Cranial VII - Motor system: Bulk normal in bilateral upper and lower extremity Tone-bilateral upper extremity normal and decreased in bilateral lower extremity no rigidity Strength-upper extremity bilateral 5/5-no pronator drift Lower extremity-right 0/5 and left 0/5 Reflexes-upper extremity bilateral 2+: Biceps, triceps, brachioradialis Lower extremity-knee and [id number] Babinski sign-absence - Sensory system: Upper extremity bilateral normal, lower extremity bilateral pain, touch, pressure-normal Abdomen-decreased sensation to pain and touch in T11 de rmatome Additionally patient lost sensation of right-sided face and unable to close right side Eye and hearing loss in right ear - Cerebellar: Normal finger-nose test, no dysdiadochokinesia Gait-could not elicited Skin: Warm and dry Extremities : No Edema, peripheral pulses felt, No deformities Psychiatric:Appropriate mood and affect,No hallucinations Vital Signs Date Time Temp Pulse Resp B/P (MAP) Pulse Ox O2 Delivery O2 Flow Rate FiO2 12/12/25 12:42 18 09/22/25 10:00 98.1 86 119/76 (90) 96 Room Air 09/22/25 08:00 0.0 Laboratory Tests Test 09/21/25 05:59 09/22/25 08:11 White Blood Count 4.3 X10'3 4.3 X10'3 Red Blood Count 5.28 X10'6 5.01 X10'6 Hemoglobin 13.0 g/dl 12.3 g/dl Hematocrit 40.0 % 38.0 % Mean Corpuscular Volume 75.8 FL 75.8 FL Mean Corpuscular Hemoglobin 24.7 PG 24.5 PG Mean Corpuscular Hemoglobin Concent 32.5 g/dL 32.3 g/dL Red Cell Distribution Width 13.9 % 14.3 % Platelet Count 298 X10'3 310 X10'3 Mean Platelet Volume 6.9 FL 6.9 FL Neutrophils (%) (Auto) 57.3 % 61.8 % Lymphocytes (%) (Auto) 15.1 % 14.6 % Monocytes (%) (Auto) 16.8 % 16.1 % Eosinophils (%) (Auto) 9.5 % 6.4 % Basophils (%) (Auto) 1.3 % 1.1 % Neutrophils # (Auto) 2.5 X10'3 2.6 X10'3 Lymphocytes # (Auto) 0.6 X10'3 0.6 X10'3 Monocytes # (Auto) 0.7 X10'3 0.7 X10'3 Eosinophils # (Auto) 0.4 X10'3 0.3 X10'3 Basophils # (Auto) 0.1 X10'3 0.0 X10'3 CBC Comment Differential Total Cells Counted 100 Neutrophils % (Manual) 55.0 % Lymphocytes % (Manual) 15.0 % Monocytes % (Manual) 19.0 % Eosinophils % (Manual) 11.0 % Platelet Estimate Normal Red Blood Cell Morphology Normal Basophilic Stippling Sodium Level 130 MMOL/L 130 MMOL/L Potassium Level 4.5 MMOL/L 4.3 MMOL/L Chloride Level 97 MMOL/L 99 MMOL/L Carbon Dioxide Level 27.1 MMOL/L 27.5 MMOL/L Anion Gap 6 4 Blood Urea Nitrogen 23 MG/DL 26 MG/DL Creatinine 0.92 MG/DL 0.83 MG/DL Estimated GFR/1.73 m2 85 ML/MIN > 90 ML/MIN BUN/Creatinine Ratio 25.0 31.3 Glucose Level 96 MG/DL 92 MG/DL Calcium Level 8.6 MG/DL 8.5 MG/DL Total Bilirubin 0.4 MG/DL 0.4 MG/DL Aspartate Amino Transf (AST/SGOT) 25 U/L 25 U/L Alanine Aminotransferase (ALT/SGPT) 20 U/L 20 U/L Alkaline Phosphatase 77 IU/L 70 IU/L Total Protein 8.0 G/DL 7.6 G/DL Albumin 3.1 G/DL 2.9 G/DL Globulin 4.9 G/DL 4.7 G/DL Albumin/Globulin Ratio 0.6 0.6 Chemistry Comments Imaging at hospital CT cervical spine-No definite CT evidence of acute fracture or dislocation of the bony cervical spine. Degenerative change of the cervical spine. CT thoracic spine-No definite CT evidence of acute fracture or dislocation of the bony thoracic spine. Degenerative change of the thoracic spine. Abdomen/pelvic CT-. Marked urinary bladder distention. Head CT-No evidence of acute intracranial abnormality. MRI of the cervical spine without contrast-Degenerative disc disease and facet/ uncinate disease in the cervical spine with associated spinal canal, subarticular, and neural foraminal stenoses as detailed above. Congenital spinal canal narrowing contributes to the spinal canal stenoses. Straightening of the normal cervical lordosis. No significant spondylolisthesis. No signal abnormality in the spinal cord to suggest myelopathy. Thoracic spine MRI without contrast-Normal MRI of the Thoracic Spine. Lumbar spine MRI without contrast-Mild diffuse annular bulges of the L2-3, L3-4 and L4-5 discs without significant narrowing of the central canal or evidence of nerve root compression Cervical spine MRI with contrast-Minimal enhancement adjacent to the distal aspects of the C7 and T1 spinous processes, may be due to nonspecific inflammation or mild supraspinous ligament sprains in the appropriate clinical setting. Thoracic spine MRI with contrast-No abnormal enhancement identified. Lumbar spine fluid analysis-pending CT Head : No CT evidence of acute intracranial hemorrhage. Questionable ovoid structure near the right cerebellopontine angle. Correlate with clinical findings. MRI without and with contrast could be considered to further characterize if clinically indicated and exclude mass. Discharge instruction Continue home med trimethoprim sulfamethoxazole,Genvoya *Problems/Diagnosis: (1) Right leg weakness Status: Acute (2) Left leg weakness Status: Acute Total Time Spent on D/C: Up to 30 Minutes Counseling Services Smoking & Tobacco Cessation: 3-10 Minutes Date of Service: Sep 22, 2025 Billing Provider: JOSH MORA MD, SATISH, RES Sep 22, 2025 13:09
--- NOTE | 2025-09-22 17:32 | [facility] CONSULT REPORT ---
[facility] Procedure Note [facility] Procedure Note Consult [facility] # Demographics Consult Type: General Neurology Patient Location: Inpatient First Name: Alverto Last Name: Killian Date of : 1970 Age: 55 Gender: Male Facility: [facility] Time of Initial Page (): 09/22/2025 16:39 First Contact with Site (): 09/22/2025 16:39 # HPI History: 55yom with HIV, CAD who p/w sensory changes and BLE. He says symptoms started as a thin band of numbness around his rib cage about 2 weeks ago. Then, this continued to travel downwards until it eventually manifested in BLE weakness and numbness. Since being admitted, he has had MRI C,T and L spine with results as below. LP was attempted 3 times and was unable to obtain CSF. He was started on IVIG but has had progression of his symptoms and at this time has some difficulty closing his R eye, mild R facial droop, and diplopia. # Exam Mental Status: - awake - alert and oriented x 3 Cranial Nerves: diplopia R facial droop Motor: BLE weakness, no movement against gravity, does not move toes Sensory: sensory level at T4 # Data MRI: MR C spine - degenerative disc disease and face uncinate disease in cervical spine, congenital spinal canal narrowing, straightening of normal cervical lordosis, no signal cord to suggest myelopathy Normal MR T spine Mild diffuse annular bulges of the L2-L3, L3-L4, and L4-L5 # Assessment Impression: - Weakness # Plan Imaging: (urgency: routine): - MRI Brain with AND without contrast Repeat MR C spine w and wo contrast Diagnostic Test: - Lumbar puncture: cell count, protein, glucose, gram stain, and culture Ideally would continue to try to attempt LP with fluoroguidance Other: - If patient has any neurological deterioration please call me back immediately Additional Recommendations: Would continue with IVIG for now Trend NIFs and FVCs q4h Transfer to [facility] with inpatient neurology and possible PLEX, consideration for inpatient EMG/NCS # Logistics Attestation of consult completion: The patient is located at: [facility]. Facility staff participated in the visit. I performed this telemedicine visit from my offsite office utilizing interactive 2 way audio and visual telecommunication technology at the request of the onsite inpatient provider. Total time spent in telemedicine encounter: I spent 23 minutes reviewing clinical data and/or imaging, obtaining history, examining the patient, communicating with the onsite care team, and in preparation of this report. # Demographics First Name: Alverto Last Name: Maddock Facility: [facility] Electronically signed at 09/22/2025 17:29 (Perkins Time) by Rambo Burroughs MD Neuro Consult Order placed for: Yes RAMBO BURROUGHS MD Sep 22, 2025 17:32
--- NOTE | 2025-09-22 18:40 | CONSULTATION REPORT - RESIDENT ---
Consult Providers to CC Resident Creating Document: RAYRAY PANIAGUAMARCO, AVRIL History of Present Illness Reason for Admit\Complaint: HIV with neurological symptoms. History of Present Illness 55-year-old male patient with history of HIV taking Genvoya since 1995 presented to the hospital with chief complaint of progressive neurologic symptoms. The patient states that proximally two weeks ago he experienced some levels in the level of the lower chest, posteriorly this numbness spread until the level of the groin. The patient states that during the last two weeks this numbness has been spreading until the level of the bilateral lower extremities. The patient states associated weakness of the lower extremities. He also states that three days before the onset of these neurological symptoms he had some episodes of nonbloody diarrhea and nausea which resolved by itself. The patient stated that he decided to take a break of his HIV medications on 2020, he just restarted his medications for months ago and is following Dr. Monge as an outpatient for HIV. We were consulted for further management of HIV and associated neurological symptoms. Allergies: Coded Allergies: amoxicillin (Verified Allergy, Unknown, 09/14/25) Home Medications Home Medications Active Phenergan (Promethazine Hcl) 12.5 Mg Tablet 1 Tab PO Q6H 7 Days Reported Septra Ds Tab (Trimethoprim/Sulfamethoxazole) 800 Mg/160 Mg Tablet 1 Tab PO DAILY Genvoya Tablet (Elviteg/Cady/Emtric/Tenofo Ala) 1 Each Tablet 1 Tab PO DAILY 30 Days Past Medical History Past Medical History CAD s/p stent placement HIV Past Surgical History Surgical History Comment None Family History Family History: Patient reports no known family medical history. Exam Vitals: Vital Signs Date Time Temp Pulse Resp B/P (MAP) Pulse Ox O2 Delivery O2 Flow Rate FiO2 09/22/25 15:00 98.3 76 16 104/83 (90) 94 Room Air 09/22/25 08:00 0.0 Physical exam: General: Awake, alert, oriented. No acute distress. No anemia, Jaundice or clubbing. HEENT: Conjunctive are pink, sclerae clear, no icterus, pupil is equal in both sides, reactive to light, no ear discharge, no pharyngeal erythema or an edema. Difficulty to close the right eye. Neck: Supple, no adenopathy, thyromegaly. Trachea is midline. No JVD. Chest: Respiratory: Vesicular breath sounds. No ronchi, crepitus or wheezing. Resonance is normal upon percussion of all lung raya. Cardiovascular: S1-S2 regular sinus rhythm and, regular rate, no gallops, no rubs, no murmurs Abdomen: No visible distention, Bowel sounds present on auscultation, on palpation: soft, nontender, no guarding, no rigidity. Extremities: No obvious deformities, no pitting edema bilaterally, capillary refill intact, peripheral pulsations are intact on both sides Neurologic: Mental status: alert and conscious, oriented to place, person and time, preserved memory, normal speech. Cranial nerves I-XII: Normal. Except cranial nerve 7, were right commissure drop is evidenced. Motor system: Strength 0/5 in bilateral lower extremities, no evidenced involuntary movements. Strength 5/5 in bilateral upper extremities. Sensory system: Preserved temperature, pain and vibration sensation. 1+ deep tendon reflexes in biceps, triceps, quadriceps. Negative Babinski. Cerebellar: No nystagmus, dysdiadochokinesia, normal [id number] testing. Skin: Warm and dry. Diagnostic Data Last Recorded Lab Results: 09/22/25 0811 09/22/25 0811 Diagnostic Data: Laboratory Tests Test 09/16/25 01:06 Prothrombin Time 10.7 SECONDS (9.0-12.0) INR International Normalized Ratio 1.0 INR Activated Partial Thromboplast Time 25 SECONDS (22-32) Coagulation Comments Problems: (1) Right leg weakness Status: Acute (2) Left leg weakness Status: Acute Additional Plan Assessment and plan: 55-year-old male patient with past medical history of HIV presented to the hospital with neurological symptoms described as numbness which progressively spread from the abdomen to the lower extremities. Immune reconstitution inflammatory syndrome: Possible opportunistic infection: The patient presented to the hospital with some neurological symptoms. The patient stated that he stopped taking his HIV medications for approximately 4-5 years. He resumed his HIV medication four months ago. Regarding possibility of IRIS opportunistic infections is considered mostly with the current CD4 count of 139. No viral count has been evidenced. Noticed workup of the thoracic cervical and lumbar spine. Differentials include cryptococcal, toxoplasmosis, DEL virus, CMV infection. Recommendations: MRI of the brain due to possible opportunistic infections. Follow-up cryptococcal antigen, toxoplasmosis serology, DEL virus PCR, CMV PCR. Neurology consult is also recommended. Continue trimethoprim sulfamethoxazole. Truvada 200-300 mg daily. Isentress 400 mg daily. Other comorbidities: CAD s/p stent, hyponatremia, methamphetamine abuse: Appropriately managed by primary team. Resident MD attestation: Patient was seen, examined and discussed with the attending MD, Dr. Amezquita. Marco Paniagua Internal Medicine Resident [facility] Date of Service: Sep 22, 2025 Billing Provider: MACK AMEZQUITA DO Addendum Patient seen and examined with Dr. Rayray Paniagua. Agree with the above assessment and plan. In brief, this is an ID consultation on a 55 year old male with HIV/AIDS whose CD4 count came back at 139. He had been off of therapy for awhile and estimates that he re-established care with Dr. Monge and was restarted on Genvoya about 4 months ago. He did subsequently achieve a negative viral load but has developed progressive neurologic symptoms for which he was admitted to [facility]. He has been here several days and been getting IVIG without improvement. Though there are certainly a lot of AIDS related neuropathies, his workup thus far has not taken into account any OI. Would recommend that that be done at this time, especially as his timeline fits IRIS. Prior attempts at LP have been unsuccessful so would start with MRI head with and without contrast; serum workup including DEL virus PCR, Cryptococcus Ag, Toxo Ab, CMV PCR. If he does have more LP fluid obtained then please call me so I can arrange for it to be sent to [facility] for the [employer]. As he has been on his Genvoya for the last 4 months, it (or an equivalent formulary Truvada, Isentress) should be resumed. I have reviewed today's neuro note and agree that he would benefit from transfer to a facility with inpatient neurology. MARCO RAHMAN, RES Sep 22, 2025 18:40 MACK AMEZQUITA DO Sep 22, 2025 22:10
[2025-09-22] MEDS ORDERED: raltegravir 400mg tablet PO SCH (18:49)
[2025-09-22] MEDS ORDERED: emtricitabine/tenofovir 200mg/300mg tablet PO SCH (18:50)
--- NOTE | 2025-09-22 19:21 | PROGRESS NOTE- Residence ---
Progress Note - Resident Providers to CC Resident Creating Document: ROMA DIETRICH, AVRIL ~ Antibiotic Timeout Antibiotic Ordered?: No Subjective Patient was seen and examined at the bedside today. Today patient developed with difficulty swallowing, difficulty closing eyes, loss of smile-we consulted tele neurology recommended transferred to the high level [facility] Objective Vital Signs Date Time Temp Pulse Resp B/P (MAP) Pulse Ox O2 Delivery O2 Flow Rate FiO2 09/22/25 15:00 98.3 76 16 104/83 (90) 94 Room Air 09/22/25 08:00 0.0 Result Diagram: 09/22/25 0811 09/22/25 0811 Awake , alert, and oriented x4 HEENT: Atraumatic, normocephalic, EOMI, anicteric sclera ; pink conjunctiva Neck: Trachea midline. Supple, full range of motion, no JVD Cardiac: Regular rhythm, regular rate with no murmurs all over the precordium. Respiratory: Equal breath sounds bilaterally, no tachypnea, no wheezing ,rub or rales, Chest wall is symmetric and without deformity. Gastrointestinal: Abdomen symmetric, non-distended, soft, mild tenderness on palpation is present, normal bowel sounds x4 quadrant, normoactive, no hepatosplenomegaly Musculoskeletal: No pedal edema -reducible inguinal hernia present on examination Neurological: Mental status exam: alert and consciousness, orientation x3, memory, speech - Cranial nerve test: Cranial nerves 2-12 are intact - Motor system: Bulk normal in bilateral upper and lower extremity Tone-bilateral upper extremity normal and decreased in bilateral lower extremity no rigidity Strength-upper extremity bilateral 5/5-no pronator drift Lower extremity-right 0/5 and left 0/5 Reflexes-upper extremity bilateral 2+: Biceps, triceps, brachioradialis Lower extremity-knee and [id number] Babinski sign-absence - Sensory system: Upper extremity bilateral normal, lower extremity bilateral pain, touch, pressure-normal Abdomen-decreased sensation to pain and touch in T11 dermatome - Cerebellar: Normal finger-nose test, no dysdiadochokinesia Gait-could not elicited Skin: Warm and dry Extremities : No Edema, peripheral pulses felt, No deformities Psychiatric:Appropriate mood and affect,No hallucinations or suicidal ideation Coagulation Studies Laboratory Tests Test 09/16/25 01:06 Prothrombin Time 10.7 SECONDS (9.0-12.0) INR International Normalized Ratio 1.0 INR Activated Partial Thromboplast Time 25 SECONDS (22-32) Coagulation Comments Assessment Assessment Acute Sudden onset bilateral lower extremity paralysis, cause and evaluation Possible epidural hematoma Right Facial nerve palsy , difficulty swallowing Possible Immune reconstitution inflammatory syndrome: TSH-1.36, procalcitonin 0.05, ESR 10 In ED- Cervical spine, thoracic spine CT-shows degenerative changes but no evidence of fracture Abdomen/pelvis CT shows marked urinary retention Head CT ruled out bleeding Cervical spine MRI-degenerative changes, thoracic spine MRI-normal MRI of the lumbar spine- Mild diffuse annular bulges of the L2-3, L3-4 and L4-5 discs without significant narrowing of the central canal or evidence of nerve root compression MRI of the cervical spine with contrast-Minimal enhancement adjacent to the distal aspects of the C7 and T1 spinous processes, may be due to nonspecific inflammation or mild supraspinous ligament sprains in the appropriate clinical setting. MRI of the thoracic spine with contrast-. No abnormal enhancement identified. Tele neurology recommended lumbar puncture and PT Patient underwent lumbar puncture by Dr. Muhammad-Follow up with CSF analysis Continue IVIG 0.4g/kg/day for 3/5 days Pending transferred to [facility] for further neurological evaluation, continuous pillowcase cutter are working placement Consulted neurosurgeon Dr. Vallejo, appreciate his recommendations Follow up with MRI spine with and without contrast 09/22/2025 Patient has a posterior go to [facility] for high level of care, But i was not happened according to the plan Consulted tele neurologist they recommended continuation of IVIG-continue IVIG day 4/5 Follow up with MRI head with and without contrast, MRI cervical spine with and without contrast, MRI lumbar spine with and without contrast Also recommended lumbar puncture and NIFs/FVC q.4h Also recommended transferred to the higher level center with Neurology or plasmapheresis Coronary artery disease status post stent placement in 2022 Patient denies taking any medication at home History of HIV Continue home med Continue trimethoprim sulfamethoxazole for prophylaxis ID is on board-recommended cryptococcal antigen, toxoplasmosis serology, DEL virus PCR, CMV PCR. Follow up Started Truvada 200-300 mg daily.Isentress 400 mg daily. Hyponatremia Continue normal saline 75 cc/hour Methamphetamine use U tox positive for amphetamine and opiates Code Status: Full DVT prophylaxis: Heparin subQ Analgesia/Sedation: Morphine Line/tube: Peripheral Nutrition: Regular PT: Ordered Prognosis: Ordered Disposition-continuous pillowcase cutter are working for transfer to [facility] for high level of care Roma Dietrich PGY1-Internal Medicine Resident Date of Service: Sep 22, 2025 Billing Provider: JOSH MORA MD Common Visit Codes: [id number] INP/OBS CARE(HIGH) ROMA DIETRICH, RES Sep 22, 2025 19:21 JOSH MORA MD Sep 23, 2025 08:42
[2025-09-23 02:00] VITALS: BP 126/78; PULSE 58; RESP 16; TEMP 97.7; O2SAT 98
[2025-09-23 06:00] VITALS: BP 128/82; PULSE 78; RESP 16; TEMP 97.7; O2SAT 97
[2025-09-23 06:34] LABS: MEAN PLATELET VOLUME 6.7 FL (7.4-10.4); RED CELL DISTRIBUTION WIDTH 13.6 % (11.5-14.5)
[2025-09-23 06:55] LABS: CREATININE 0.86 MG/DL (0.60-1.10); TOTAL CARBON DIOXIDE 26.5 MMOL/L (24-32); eCRCL 96 ML/MIN; eGFR > 90 ML/MIN
[2025-09-23 08:00] VITALS: RESP 16; O2SAT 97
[2025-09-23] MEDS: emtricitabine/tenofovir 200mg/300mg tablet PO SCH (08:00)
[2025-09-23] MEDS: raltegravir 400mg tablet PO SCH (09:18)
[2025-09-23 11:00] VITALS: BP 122/75; PULSE 78; RESP 20; TEMP 97.6; O2SAT 97
[2025-09-23] MEDS: metoclopramide 5 mg/ml inj IV SCH (13:32)
[2025-09-23] MEDS ORDERED: diazepam inj 5 MG/ML inj. IV ONE (16:05)
[2025-09-23] MEDS ORDERED: morphine 4 MG/ML inj SYRINge IV PRN (16:15)
[2025-09-23] MEDS: haloperidol lactate 5mg/ml inj IM ONE (16:31)
[2025-09-23] MEDS ORDERED: IMMUNE GLOBULIN IV SCH (17:11)
[2025-09-23] MEDS ORDERED: PIGGYBACK IV SCH (17:11)
[2025-09-23 18:00] VITALS: BP 140/97; PULSE 65; RESP 15; TEMP 97.6; O2SAT 94
[2025-09-23] MEDS: normal saline 500ml IV soln 500 ML IV ONE (19:10)
--- NOTE | 2025-09-23 19:13 | PROGRESS NOTE- Residence ---
Progress Note - Resident Providers to CC Resident Creating Document: ROMA DIETRICH RES ~ Antibiotic Timeout Antibiotic Ordered?: Yes Subjective Patient was seen and examined at the bedside today. Today patient developed anxiety and hallucinating while going into MRI, and it was unsuccessful the patient was on Ativan, Valium and haloperidol but still did not help. Objective Vital Signs Date Time Temp Pulse Resp B/P (MAP) Pulse Ox O2 Delivery O2 Flow Rate FiO2 09/23/25 15:21 18 09/23/25 08:00 97 Room Air 0.0 09/23/25 06:30 78 09/23/25 02:00 97.7 126/78 (94) Result Diagram: 09/23/25 0611 09/23/25 0611 Awake , alert, and oriented x4 HEENT: Atraumatic, normocephalic, EOMI, anicteric sclera ; pink conjunctiva Neck: Trachea midline. Supple, full range of motion, no JVD Cardiac: Regular rhythm, regular rate with no murmurs all over the precordium. Respiratory: Equal breath sounds bilaterally, no tachypnea, no wheezing ,rub or rales, Chest wall is symmetric and without deformity. Gastrointestinal: Abdomen symmetric, non-distended, soft, mild tenderness on palpation is present, normal bowel sounds x4 quadrant, normoactive, no hepatosplenomegaly Musculoskeletal: No pedal edema -reducible inguinal hernia present on examination Neurological: Mental status exam: alert and consciousness, orientation x3, memory, speech - Cranial nerve test: Cranial nerves 2-12 are intact - Motor system: Bulk normal in bilateral upper and lower extremity Tone-bilateral upper extremity normal and decreased in bilateral lower extremity no rigidity Strength-upper extremity bilateral 5/5-no pronator drift Lower extremity-right 0/5 and left 0/5 Reflexes-upper extremity bilateral 2+: Biceps, triceps, brachioradialis Lower extremity-knee and [id number] Babinski sign-absence - Sensory system: Upper extremity bilateral normal, lower extremity bilateral pain, touch, pressure-normal Abdomen-decreased sensation to pain and touch in T11 dermatome - Cerebellar: Normal finger-nose test, no dysdiadochokinesia Gait-could not elicited Skin: Warm and dry Extremities : No Edema, peripheral pulses felt, No deformities Psychiatric:Appropriate mood and affect,No hallucinations or suicidal ideation Coagulation Studies Laboratory Tests Test 09/16/25 01:06 Prothrombin Time 10.7 SECONDS (9.0-12.0) INR International Normalized Ratio 1.0 INR Activated Partial Thromboplast Time 25 SECONDS (22-32) Coagulation Comments Advance Care Planning Advanced Care plannin - 30 Minutes Assessment Assessment Acute Sudden onset bilateral lower extremity paralysis, cause and evaluation Possible epidural hematoma Right Facial nerve palsy , difficulty swallowing Possible Immune reconstitution inflammatory syndrome: TSH-1.36, procalcitonin 0.05, ESR 10 In ED- Cervical spine, thoracic spine CT-shows degenerative changes but no evidence of fracture Abdomen/pelvis CT shows marked urinary retention Head CT ruled out bleeding Cervical spine MRI-degenerative changes, thoracic spine MRI-normal MRI of the lumbar spine- Mild diffuse annular bulges of the L2-3, L3-4 and L4-5 discs without significant narrowing of the central canal or evidence of nerve root compression MRI of the cervical spine with contrast-Minimal enhancement adjacent to the distal aspects of the C7 and T1 spinous processes, may be due to nonspecific inflammation or mild supraspinous ligament sprains in the appropriate clinical setting. MRI of the thoracic spine with contrast-. No abnormal enhancement identified. Tele neurology recommended lumbar puncture and PT Patient underwent lumbar puncture by Dr. Muhammad-Follow up with CSF analysis Continue IVIG 0.4g/kg/day for 3/5 days Pending transferred to [facility] for further neurological evaluation, disease case manager rn are working placement Consulted neurosurgeon Dr. Vallejo, appreciate his recommendations Follow up with MRI spine with and without contrast 09/22/2025 Patient has a posterior go to [facility] for high level of care, But i was not happened according to the plan Consulted tele neurologist they recommended continuation of IVIG-continue IVIG day 4/5 Follow up with MRI head with and without contrast, MRI cervical spine with and without contrast, MRI lumbar spine with and without contrast Also recommended lumbar puncture and NIFs/FVC q.4h Also recommended transferred to the higher level center with Neurology or plasmapheresis 09/23/2025 Follow up with MRI head with and without contrast, MRI of the lumbar spine with and without contrast NIF every 4hours Received last dose of IVIG-day 5/5 pawn broker are actively looking for the placement and higher level center for further treatment Coronary artery disease status post stent placement in 2022 Patient denies taking any medication at home History of HIV Continue home med Continue trimethoprim sulfamethoxazole for prophylaxis ID is on board-recommended cryptococcal antigen, toxoplasmosis serology, DEL virus PCR, CMV PCR. Follow up Started Truvada 200-300 mg daily.Isentress 400 mg daily. 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
[2025-09-23 20:00] VITALS: RESP 18; O2SAT 97
[2025-09-23 20:10] LABS: CREATININE 0.80 MG/DL (0.60-1.10); TOTAL CARBON DIOXIDE 25.9 MMOL/L (24-32); eCRCL 103 ML/MIN; eGFR > 90 ML/MIN
--- NOTE | 2025-09-23 21:27 | PROGRESS NOTE ---
Progress Note ID Providers to CC ~ Progress Note Progress Note: Antibiotic Days: HAART: Truvada, Isentress PPX: Bactrim Lines: PIV Micro: 09/16 Blood- negative Subjective: Patient was seen on the floor taking to himself but he was able to switch gears and communicate with me as well. No improvement today and workup is all still pending Objective: Vitals: Afebrile, 78, 20, 122/75, 97% on RA General: Alert, NAD HEENT: NC/AT, no oral lesions, kept his eye mask on CV: Regular Resp: Clear anteriorly Abd: Soft, nontender, nondistended Neuro: Not able to engage his LE, did not respond to noxious stimuli Lines: PIV ok Laboratory Tests 09/23/25 06:11 09/23/25 19:48 Assessment: // HIV/AIDS - patient follows with Dr. oMnge and has recently re-established care and been resumed on Genvoya. His most recent viral load is undetectable but CD4 is 139 (15%) // Neuropathy- there are a lot of AIDS related conditions but IRIS related OI has not yet been ruled out. // Antibiotic Allergies: Amoxicillin caused a rash Plan: - Continue HAART with Truvada, Isentress - Continue ppx Bactrim - Tried to impress upon him why MRI brain is needed as he was unable to complete it today - Follow up serum DEL virus PCR, Crypto Ag, Toxo Ab, CMV PCR - Follow up any progress on transfer - Monitor temp, neuro exam - Physical therapy - Will continue to follow MACK JOEL DO Sep 23, 2025 21:27
[2025-09-23] MEDS: ketorolac trometh 15mg/ml vial 15 MG/ML ML IV ONE (22:27)
[2025-09-24 02:00] VITALS: BP 144/82; PULSE 78; RESP 18; TEMP 97.6; O2SAT 97
[2025-09-24 06:00] VITALS: BP 147/88; PULSE 73; RESP 15; TEMP 97.8; O2SAT 99
[2025-09-24 06:46] LABS: MEAN PLATELET VOLUME 6.7 FL (7.4-10.4); RED CELL DISTRIBUTION WIDTH 13.3 % (11.5-14.5)
[2025-09-24 07:03] LABS: CREATININE 0.75 MG/DL (0.60-1.10); TOTAL CARBON DIOXIDE 24.8 MMOL/L (24-32); eCRCL 110 ML/MIN; eGFR > 90 ML/MIN
[2025-09-24 08:00] VITALS: RESP 15; O2SAT 99
[2025-09-24] MEDS: ketorolac trometh 15mg/ml vial 15 MG/ML ML IV ONE (10:21)
[2025-09-24 11:00] VITALS: BP 105/69; PULSE 68; RESP 22; TEMP 97.6; O2SAT 99
--- NOTE | 2025-09-24 11:41 | [facility] CONSULT REPORT ---
[facility] Procedure Note [facility] Procedure Note Consult [facility] Note # Demographics Consult Type: General Neurology Patient Location: Inpatient First Name: Alverto Last Name: Killian Date of : 1970 Age: 55 Gender: Male Facility: [facility] Time of Initial Page (): 09/24/2025 10:26 First Contact with Site (): 09/24/2025 10:27 # HPI Chief Complaint: - weakness (focal) History: 55 yo M p/w bilateral leg weakness and band-like numbness in his upper abdomen for about 2 weeks. MRI whole spine did not reveal acute pathology. LP failed multiple times. During hospitalization, he also developed R CN VII palsy. He is s/p full course IVIG. During hospitalization, he also developed agitation and required multiple sedating medication and bilateral arm restraint. Currently he is lethargic and unable to participate in exam. # Exam Mental Status: - sleepy - lethargic Does not follow commands Cranial Nerves: - PERRLA - right facial droop - right ptosis Motor: - bilateral lower extremity weakness Sensory: - decreased sensation right lower extremity - decreased sensation left lower extremity Reflexes: - hypo reflexive # ROS Unable to obtain ROS: - altered mentation # PMH-FH-SH Past Medical History: HIV # Data MRI whole spine w/wo no acute pathology # Assessment Impression: - Guillain Cardinal - Inpatient delirium # Plan Imaging: (urgency: routine): - MRI Brain with AND without contrast Diagnostic Test: - Lumbar puncture: cell count, protein, glucose, gram stain, and culture Therapy/Evaluation: - PT/OT evaluation - Check NIF and FVC every 8 -12 hr Medication: Change gabapentin to qHS to avoid lethargy during daytime Consider adding low dose Seroquel for agitation DVT Prophylaxis: - chemical DVT prophylaxis - SCD Other: - If patient has any neurological deterioration please call me back immediately - I have discussed my recommendations with the referring provider - Delirium precaution - If weakness does not improve in the next couple days, would consider initiate PLEX Disposition: consider transfer to tertiary facility for higher level neurological care # Logistics Attestation of consult completion: The patient is located at: [facility]. Facility staff participated in the visit. I performed this telemedicine visit from my offsite office utilizing interactive 2 way audio and visual telecommunication technology at the request of the onsite inpatient provider. Total time spent in telemedicine encounter: I spent 23 minutes reviewing clinical data and/or imaging, obtaining history, examining the patient, c ommunicating with the onsite care team, and in preparation of this report. # Demographics First Name: Alverto Last Name: [place] Facility: [facility] Electronically signed at 09/24/2025 11:40 ([place] Time) by Ashleigh Samuels MD Neuro Consult Order placed for: Yes ASHLEIGH SAMUELS MD Sep 24, 2025 11:41
[2025-09-25 19:09] LABS: CYTOMEGALOVIRUS AB, IGG >10.00 U/mL (0.00-0.59); CYTOMEGALOVIRUS AB, IGM <30.0 AU/mL (0.0-29.9)
--- NOTE | 2025-09-25 20:27 | PROGRESS NOTE- Residence ---
Progress Note - Resident Providers to CC Resident Creating Document: RIGOBERTO DIETRICH RES ~ Antibiotic Timeout Antibiotic Ordered?: No Subjective Patient was seen and examined at the bedside today. Patient developed anxiety and on restrains, His speech is changed and Teleneurologist was consulted and recommoned starting of serequel He is trasffered to [facility] Objective Vital Signs Date Time Temp Pulse Resp B/P (MAP) Pulse Ox O2 Delivery O2 Flow Rate FiO2 09/24/25 11:00 97.6 68 22 105/69 (81) 99 Room Air 09/24/25 08:00 0.0 Result Diagram: 09/24/25 0609/24/25 06 Awake , alert, and oriented x4 HEENT: Atraumatic, normocephalic, EOMI, anicteric sclera ; pink conjunctiva Neck: Trachea midline. Supple, full range of motion, no JVD Cardiac: Regular rhythm, regular rate with no murmurs all over the precordium. Respiratory: Equal breath sounds bilaterally, no tachypnea, no wheezing ,rub or rales, Chest wall is symmetric and without deformity. Gastrointestinal: Abdomen symmetric, non-distended, soft, mild tenderness on palpation is present, normal bowel sounds x4 quadrant, normoactive, no hepatosplenomegaly Musculoskeletal: No pedal edema -reducible inguinal hernia present on examination Neurological: Mental status exam: alert and consciousness, orientation x3, memory, speech - Cranial nerve test: Cranial nerves 2-12 are intact - Motor system: Bulk normal in bilateral upper and lower extremity Tone-bilateral upper extremity normal and decreased in bilateral lower extremity no rigidity Strength-upper extremity bilateral 5/5-no pronator drift Lower extremity-right 0/5 and left 0/5 Reflexes-upper extremity bilateral 2+: Biceps, triceps, brachioradialis Lower extremity-knee and [id number] Babinski sign-absence - Sensory system: Upper extremity bilateral normal, lower extremity bilateral pain, touch, pressure-normal Abdomen-decreased sensation to pain and touch in T11 dermatome - Cerebellar: Normal finger-nose test, no dysdiadochokinesia Gait-could not elicited Skin: Warm and dry Extremities : No Edema, peripheral pulses felt, No deformities Psychiatric:Appropriate mood and affect,No hallucinations or suicidal ideation Coagulation Studies Laboratory Tests Test 09/16/25 01:06 Prothrombin Time 10.7 SECONDS (9.0-12.0) INR International Normalized Ratio 1.0 INR Activated Partial Thromboplast Time 25 SECONDS (22-32) Coagulation Comments Assessment Assessment Acute Sudden onset bilateral lower extremity paralysis, cause and evaluation Possible epidural hematoma Right Facial nerve palsy , difficulty swallowing Possible Immune reconstitution inflammatory syndrome: TSH-1.36, procalcitonin 0.05, ESR 10 In ED- Cervical spine, thoracic spine CT-shows degenerative changes but no evidence of fracture Abdomen/pelvis CT shows marked urinary retention Head CT ruled out bleeding Cervical spine MRI-degenerative changes, thoracic spine MRI-normal MRI of the lumbar spine- Mild diffuse annular bulges of the L2-3, L3-4 and L4-5 discs without significant narrowing of the central canal or evidence of nerve root compression MRI of the cervical spine with contrast-Minimal enhancement adjacent to the distal aspects of the C7 and T1 spinous processes, may be due to nonspecific inflammation or mild supraspinous ligament sprains in the appropriate clinical setting. MRI of the thoracic spine with contrast-. No abnormal enhancement identified. Tele neurology recommended lumbar puncture and PT Patient underwent lumbar puncture by Dr. Muhammad-Follow up with CSF analysis Continue IVIG 0.4g/kg/day for 3/5 days Pending transferred to [facility] for further neurological evaluation, supportive employment case manager are working placement Consulted neurosurgeon Dr. Vallejo, appreciate his recommendations Follow up with MRI spine with and without contrast 09/24/25 As patient condition is worsening we consulted teleneuro- they recommonded serequel and Night time dose of GABApentin Today at noon Patient was accepted by [facility] and he was discharged Coronary artery disease status post stent placement in 2022 Patient denies taking any medication at home History of HIV Continue home med Continue trimethoprim sulfamethoxazole for prophylaxis ID is on board-recommended cryptococcal antigen, toxoplasmosis serology, DEL virus PCR, CMV PCR. Follow up Started Truvada 200-300 mg daily.Isentress 400 mg daily. 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
== END 2025-09-24 13:35 | disposition short-term general hospital (02) | DRG 58 ==
LOC: ER 22:01 → ED HOLD 09-16 18:20 → ORTHO 4S 09-16 20:08 → PCU 3S 09-22 11:49
PROVIDERS: ADMIT Internal Medicine; ATTEND Internal Medicine
PROC: BW211ZZ Computerized Tomography (CT Scan) of Abdomen and Pelvis using Low Osmolar Contrast (ICD-10-PCS; principal; 2025-09-16)
PROC: 0QJY3ZZ Inspection of Lower Bone, Percutaneous Approach (ICD-10-PCS; 2025-09-19)
DX: R20.2 Paresthesia of skin (principal); D89.3 Immune reconstitution syndrome; G61.0 Guillain-Barre syndrome; G12.29 Other motor neuron disease; G82.20 Paraplegia, unspecified; E87.1 Hypo-osmolality and hyponatremia; R33.9 Retention of urine, unspecified; R20.0 Anesthesia of skin; I25.10 Atherosclerotic heart disease of native coronary artery without angina pectoris; F17.210 Nicotine dependence, cigarettes, uncomplicated; K59.00 Constipation, unspecified; F15.90 Other stimulant use, unspecified, uncomplicated; G51.0 Bell's palsy; F41.9 Anxiety disorder, unspecified; G62.9 Polyneuropathy, unspecified; Z95.5 Presence of coronary angioplasty implant and graft; Z88.0 Allergy status to penicillin; Z88.1 Allergy status to other antibiotic agents
CPT/HCPCS: 36415; 62328; 70450; 72125; 72128; 72141; 72146; 72148; 72156; 72157; 74177; 80053; 80305; 81001; 82607; 82948; 83605; 83735; 83930; 84145; 84443; 85007; 85025; 85610; 85651; 85730; 86140; 86361; 86644; 86645; 86777; 87040; 87081; 87798; 87899; 93005; 96372; 96374; 96375; 97110; 97163; 97164; 97530; 99291; A4314; A4358; A4615; A6449; A6590; G0378; J0360; J1171; J1459; J1630; J1644; J1885; J2060; J2270; J2405; J2765; J3490; J7030; J7040; Q9967